=== PATIENT | female | born 1935 | race Caucasian/White ===

== ENCOUNTER 2017-06-12 14:51 | Inpatient (IN) ==
--- NOTE | 2017-06-12 15:30 | History & Physical Report ---
<Hilary Hearn - Last Filed: 06/12/17 19:10> History of Present Illness Date: 06/12/17 Chief complaint: Swing bed admission HPI: This is an 81-year-old female with history of dementia who, prior to her admission to [facility], lived alone (and her daughter checked in on her frequently throughout the day). On 05/26/17 her daughter took her into [facility] emergency room because her daughter thought that she was not acting her normal self. Head CT was performed in the ER and intraparenchymal and subdural hemorrhage were found. Due to these findings, patient was transferred to [facility]. The patient may have had a fall several days prior to her admission, but had done well since then. Patient was seen in consultation by Dr. Dyson on admission to [place]. He did not recommend surgery. He recommended observation and serial CT head scans as needed. Cardiology was consulted during her stay as well on 05/29/[address] Brenna Rangel saw patient and thought she most likely had a type 2 NSTEMI with her elevated troponin which peaked at 0.08. She had a negative bubble study by echo on 05/28/17 with an ejection fraction of 55-60%. She was placed on potassium and magnesium replacement due to low levels. He recommended outpatient Fam of Hearts monitor, but no further intervention during hospital stay other than keeping SBP <140/90. Patient is being transferred here for swing bed. Family hopes she could be transferred to the rehabilitation unit for strengthening. At this time, patient is stable and doing well. She is back to her cognitive baseline, per daughter. Daughter reports she typically does not know where she is or the date, but she recognizes family members. She is usually continent of bowel and bladder. At the end of her acute hospital stay, she was ambulating to and from the bathroom with her walker. Ideally, family wishes to get patient back home, although, they realize this might not be an option. Review of Systems All systems PM: 10-point ROS was reviewed, no additional remarkable complaints except - Constitutional Constitutional: Present: weakness - Gastrointestinal Gastrointestinal: Present: dysphagia - Musculoskeletal Musculoskeletal: Present: other (chronic right hip pain, currently not bothersome) - Neurological Neurological: Present: confusion (related to dementia), memory loss (related to dementia), weakness - Psychiatric Psychiatric: Present: other (daughter reports she does have some sundowning, but usually improves after a few days of adjusting to her new environment.) [facility] Medical History Intraparenchymal hemorrhage-right occipital, left cerebellar (06/05) Subdural hematoma-right tentorial, left posterior fossa (06/05) Acute ischemia left cerebellar hemisphere, left brachium pontis (06/05) Right common femoral vein DVT-no anticoagulation due to recent brain bleed () Right lower lobe pulmonary embolism: IVC filter placed (05/31/17) Type II NE, 2/2 demand ischemia (06/05) Dementia History of GI bleed with perforated ulcer (2014) Depression Atrial arrhythmia (not atrial fibrillation) Chronic right hip pain secondary to osteoarthritis Medical History Updates: Patient's home medications prior to [place] admission were: Donepezil 10 mg at at bedtime, sertraline 50 mg at at bedtime, amantadine 10 mg twice a day. New medications started during admission were: Clonidine 0.1 mg twice a day, amlodipine 10 mg daily, levetiracetam 5 mg twice a day, tamsulosin 0.4 mg daily, acetaminophen 500 mg every 6 hours when necessary, milk of mag when necessary, docusate 100 twice a day, and MiraLAX daily PRN. Surgical History: Cholecystectomy, appendectomy, bladder repair - Social History Smoking status: Never smoker Substance use type: does not use Alcohol intake frequency: does not drink Housing: house Household members: none Current occupational status: retired Social history: Has a dog, Tellie 3 children live close and help take care of her , passed 3 years ago [facility]gcai-hd-dlv of Dr. Berg Consultants: Neurosurgery-Dr. Dyson Cardiology-Dr. Rangel DPOA-H - Theresa Berg, daughter [phone] Medications Home Medications Medication Instructions Recorded Confirmed Type Acetaminophen [Tylenol] 325 - 650 mg PO PRN 06/12/17 06/12/17 History Donepezil HCl [Aricept] 10 mg PO HS 06/12/17 06/12/17 History Memantine HCl 10 mg PO BID 06/12/17 06/12/17 History Sertraline HCl [Zoloft] 50 mg PO HS 06/12/17 06/12/17 History Allergies Allergy/AdvReac Type Severity Reaction Status Date / Time No Known Allergies Allergy Unverified 06/12/17 15:29 Exam Vital Signs: Temperature 97.3 F 06/12/17 14:51 Pulse Rate 95 06/12/17 14:51 Respiratory Rate 16 06/12/17 14:51 Blood Pressure 108/69 06/12/17 14:51 Pulse Oximetry 94 06/12/17 14:51 Height/Weight/BMI: Height 1.68 m Weight 62.2 kg Body Mass Index 22.1 - Constitutional Present: no acute distress, well developed, thin - Routine HEENT Exam Eye: Present: EOMI ENT: Present: mucous membranes moist, oropharynx clear - Routine Neck Exam Present: supple. Absent: lymphadenopathy, thyromegaly - Routine Respiratory Exam Present: CTA bilaterally. Absent: wheezes - Routine Cardiovascular Exam Present: RRR (with frequent irregular beats), S1, S2. Absent: murmur - Routine Abdominal Exam Present: soft, normoactive bowel sounds, non distended. Absent: tenderness - Routine Extremities Exam Present: no edema, normal capillary refill - Routine Skin Exam Present: dry, warm, vitiligo (bilateral hands) - Routine Neurological Exam Present: moving all extremities, normal speech. Absent: alert (drowsy. Sleeps through part of exam.), oriented X3 (knows her family and is oriented to self, but not place or time.), pronator drift - Routine Psychiatric Exam Present: normal affect, cooperative Results - Labs Labs: 06/11/17 WBC 9.8 RBC 4.85 Hemoglobin 13.0 Hematocrit 41.0 MCV 84.5 MCH 26.8 MCHC 31.7 RDW 16.8 Platelets 434 Sodium 139 potassium 4.3 Chloride 108 Carbon dioxide 23 Anion gap 8 Glucose 96 BUN 16 Creatinine 0.9 GFR 60 Creatinine clearance 42 Calcium 8.3 As of 06/05/17 no growth on blood culture - Echocardiogram Echocardiogram: Ejection fraction 55-60%, bubble study negative - Imaging and Cardiology CT scan - head Additional comments: 06/04/17 CT head without contrast Impression: #1 interval decrease in right occipital parenchymal hemorrhage decreasing subdural hemorrhage along the tentorium and left posterior fossa #2 previously noted left cerebellar hemisphere hemorrhages less apparent on current exam with possible trace residual. #3. Hyperdensity along the anterior aspect of the right frontal lobe which may represent a small amount of extra-axial hemorrhage #4. No CT evidence of acute territorial ischemia or mass. #5. Generalized parenchymal volume loss. CT angiogram neck Additional comments: 05/26/17 Impression 1. No evidence of flow-limiting stenosis in the carotid or vertebral artery systems. Minimal sclerosis in the bilateral carotid bulbs 2. No acute abnormality in the neck CT angiogram head Additional comments: 05/26/17 Impression 1. Multifocal parenchymal hemorrhage in the right occipital lobe and layering subdural hematoma along the right tentorium. This appears similar to outside head CT from the same day. 2. No evidence of significant stenosis or aneurysm in the [place]. 3. No focal mass. No obvious CT evidence of acute territorial ischemia. CT thoracic spine Additional comments: 05/29/17 Impression 1. No acute compression fracture in the thoracic spine. Diffuse osteopenia 2. Chronic appearing for vertical height loss of T5 vertebral body with 15-20% central height loss. No discrete fracture line. 3. Degenerative changes in the thoracic spine. No retropulsed bony fragments. No bony spinal canal or foraminal stenosis. 4. Bilateral pleural effusions, left greater than right. Interlobular septal thickening in the lungs with scattered groundglass opacities could be due to pulmonary edema. 5. Cholelithiasis. 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 CT cervical spine Additional comments: 05/29/17 Impression 1. No acute fracture in the cervical spine 2. Mild anterolisthesis of C4 over C5 is likely degenerative, stable since prior CT dated 05/26/17. 3. Interstitial thickening and bilateral pleural effusions and included lung bases. This can be seen with pulmonary edema. MRI - head Additional comments: Acute pH involving right occipital lobe, punctate foci of acute ischemia involving the left cerebellar hemisphere and the left brachium pontis. Minimal SDH overlying right occipital lobe and right cerebellum tentorium. EEG Additional comments: No seizure activity Venous US Additional comments: 05/31/17 Impression 1. Small focus of nonobstructing thrombus at the junction of the right [place] and right saphenous veins. Remaining right lower extremity venous system is patent. 2. No evidence of DVT in the left lower extremity. Dobbhoff placement Additional comments: Chest x-ray performed 05/29/17 for Dobbhoff placement. Impression 1. Dobbhoff tube extending below the diaphragm. On the exit of the abdomen it is in the fourth portion of the duodenum. 2. Cardiomegaly. Pulmonary vascular congestion. 3. Increasing bibasilar airspace opacities could be due to atelectasis. Multilobar infection can have similar appearance. 4. Bilateral small pleural effusions, increased from prior. limited abdominal sono-FAST scan Additional comments: 05/26/17 Findings: No free fluid is identified in the right upper quadrant, left upper quadrant, or suprapubic region. There is no significant pericardial effusion. Sliding pleura sign is seen, bilaterally. Negative FAST scan Assessment and Plan (1) Dementia Current visit: Yes Status: Acute (2) Subdural hematoma Current visit: Yes Status: Acute (3) Intraparenchymal hemorrhage of brain Current visit: Yes Status: Acute Assessment and Plan: Assessment Intraparenchymal hemorrhage-right occipital, left cerebellar (06/05) Subdural hematoma-right tentorial, left posterior fossa (06/05) Acute ischemia left cerebellar hemisphere, left brachium pontis (06/05) Right common femoral vein DVT-no anticoagulation due to recent brain bleed () Right lower lobe pulmonary embolism: IVC filter placed (05/31/17) Type II NE, 2/2 demand ischemia (06/05) Dementia History of GI bleed with perforated ulcer (2014) Depression Atrial arrhythmia (not atrial fibrillation) Chronic right hip pain secondary to osteoarthritis Plan Admission to swing bed at [facility] - hospitalist service to follow , (Dr. Holly Mitchell, attending) for increasing strength and functional abilities, and medication administration. Consult PT/OT for strengthening and improving functional abilities. IRU screen ordered, as family would like for patient to transfer to IRU if possible. Consult speech therapy for dysphagia/diet recommendations. Daughter reports patient has not been eating much the last day or 2. Will also encourage Mighty Shakes. Continue amlodipine and clonidine for blood pressure control. Goal is to keep systolic blood pressure less than 140. Fam of hearts monitor recommended as outpatient per cardiology if family wishes. (Per Dr. Brenna Rangel). Recommend potassium> 4 and magnesium > 2. Follow-up with outpatient neurologist in 3-4 weeks. Continue Keppra until then. Monitor for mood disturbances/suicidal ideation while taking Keppra. Daughter would like to defer scheduling this until discharge because based on where she is discharged, will determine which neurologist she sees. No driving, swimming or bathing alone for 6 months. Follow-up with neurosurgery (Dr. Dyson) in 6-[address] head. Schedule with Dr. Wilde, interventional radiology, in 6 months to remove IVC filter. SCDs for DVT prophylaxis. Anticoagulation contraindicated at this point given the recent brain bleed. Continue memantine and donepezil for dementia. Continue sertraline for depression. Continue tamsulosin for urinary retention. Patient and family request DO NOT RESUSCITATE status. Care to return to [facility], at [facility] on dismissal. DVT Prophylaxis: SCD's Resuscitation Status: Do Not Resuscitate Hospital Course Summary Disclaimer: The visit summary below is not to be considered part of the above Progress Note. Hospital Course: Assessment Intraparenchymal hemorrhage-right occipital, left cerebellar (06/05) Subdural hematoma-right tentorial, left posterior fossa (06/05) Acute ischemia left cerebellar hemisphere, left brachium pontis (06/05) Right common femoral vein DVT-no anticoagulation due to recent brain bleed () Right lower lobe pulmonary embolism: IVC filter placed (05/31/17) Type II NE, 2/2 demand ischemia (06/05) Dementia History of GI bleed with perforated ulcer (2014) Depression Atrial arrhythmia (not atrial fibrillation) Chronic right hip pain secondary to osteoarthritis 06/12/17 hospital admission for swing bed Admission to swing bed at [facility] - hospitalist service to follow , (Dr. Holly Mitchell, attending) for increasing strength and functional abilities, and medication administration. Consult PT/OT for strengthening and improving functional abilities. IRU screen ordered, as family would like for patient to transfer to IRU if possible. Consult speech therapy for dysphagia/diet recommendations. Daughter reports patient has not been eating much the last day or 2. Will also encourage Mighty Shakes. Continue amlodipine and clonidine for blood pressure control. Goal is to keep systolic blood pressure less than 140. Fam of Impraise monitor recommended as outpatient per cardiology if family wishes. (Per Dr. Brenna Rangel). Recommend potassium> 4 and magnesium > 2. Follow-up with outpatient neurologist in 3-4 weeks. Continue Keppra until then. Monitor for mood disturbances/suicidal ideation while taking Keppra. Daughter would like to defer scheduling this until discharge because based on where she is discharged, will determine which neurologist she sees. No driving, swimming or bathing alone for 6 months. Follow-up with neurosurgery (Dr. Dyson) in 6-[address] head. Schedule with Dr. Wilde, interventional radiology, in 6 months to remove IVC filter. SCDs for DVT prophylaxis. Anticoagulation contraindicated at this point given the recent brain bleed. Continue memantine and donepezil for dementia. Continue sertraline for depression. Continue tamsulosin for urinary retention. Patient and family request DO NOT RESUSCITATE status. Care to return to [facility], at [facility] on dismissal. <Holly Mitchell - Last Filed: 06/12/17 21:13> History of Present Illness Date: 06/12/17 [facility] Patient Stated Medical History Cerebrovascular Accident Yes Dementia Yes Transient Ischemic Attacks ( Yes TIA) Dental Problems Yes: dentures, partial Dysphagia Yes Cardiac Arrhythmia Yes Pulmonary Embolism Yes Gastrointestinal Bleeding Yes: "about a year ago" Hx Incontinence Yes Osteoarthritis Yes Shingles Yes Depression Yes Post Menopausal Yes Exam Vital Signs: Temperature 97.3 F 06/12/17 14:51 Pulse Rate 95 06/12/17 14:51 Respiratory Rate 16 06/12/17 14:51 Blood Pressure 108/69 06/12/17 14:51 Pulse Oximetry 94 06/12/17 14:51 Height/Weight/BMI: Height 1.68 m Weight 62.2 kg Body Mass Index 22.1 Assessment and Plan (1) Dementia Current visit: Yes Status: Acute (2) Subdural hematoma Current visit: Yes Status: Acute (3) Intraparenchymal hemorrhage of brain Current visit: Yes Status: Acute Assessment and Plan: 06/12/2017-I reviewed this chart, the patient history, and the [employer]ST[employer]'s/PA's documented findings as above. We discussed and formulated the assessment and plan as above with the additions below.-Dr. Mitchell I did receive a call this morning prior to transfer from [facility] for Dr. Rae, neuro-product manufacturing professional. The patient had been at [facility] for the past 17 days after having multiple intraparenchymal hemorrhages, subdural hemorrhage, and an acute ischemic left cerebral infarct thought to be secondary to trauma from a fall. She was in intensive care for approximately 10 days. Blood pressure was controlled. She did develop a right lower extremity DVT and PE. An IVC filter was placed and she was not anticoagulated because of recent intraparenchymal bleeds and subdural hematoma. The patient was initially requiring oxygen but now is on room air. She had been on the medical floor for the past 1 week. Blood pressures had been well controlled and no when necessary meds were needed. She had no neurologic deficits by the time of discharge and dementia appeared to be at baseline. She was started on Keppra for seizure prophylaxis but has not had seizures this hospital course. It was recommended that her IVC filter be removed in 6 months. It was also recommended that she have a [employer] monitor as an outpatient. The patient was seen this afternoon accompanied by her son Brandon. The patient states she feels fine and she has no complaints. She denies any pain. She denies shortness of breath. She states she's been eating and drinking well. She' s had no difficulties with constipation or difficulties with urination. She states she would like to walk more. On exam she is alert and in no acute distress. She is somewhat forgetful and tells me that her son is her "brother". HEENT reveals sclerae to be anicteric, pupils are equal round and reactive, oropharynx is moist. Neck is supple. Chest is clear to auscultation. Cardiac vascular reveals a regular rate and rhythm. Abdomen is soft and nontender. Extremity's are free of edema. Cranial nerves II through XII are grossly intact. Motor strength is equal in upper and lower extremities. Impression and plan Agree with detailed care plan dictated above. We'll continue PT and OT in swing bed status. We'll check labs tomorrow. We'll place an SCD on the left leg only, not the right leg with history of DVT. Hospital Course Summary Disclaimer: The visit summary below is not to be considered part of the above Progress Note.
[2017-06-12] MEDS ORDERED: POLYETHYL GLYCOL 3350 17gm PACKET PO PRN (18:14)
[2017-06-12] MEDS: MEMANTINE 10 MG TABLET PO SCH (21:01)
[2017-06-12] MEDS: SERTRALINE 50 MG TABLET PO SCH (21:02)
[2017-06-12] MEDS: TAMSULOSIN 0.4 MG CAPSULE PO SCH (21:02)
[2017-06-12] MEDS: LEVETIRACETAM 500 MG TABLET PO SCH (21:02)
[2017-06-12] MEDS: DONEPEZIL 10 MG TABLET PO SCH (21:02)
[2017-06-13] MEDS: AMLODIPINE 10 MG TABLET PO SCH (09:05)
[2017-06-13] MEDS: MEMANTINE 10 MG TABLET PO SCH ×2 (09:06→20:57)
[2017-06-13] MEDS: LEVETIRACETAM 500 MG TABLET PO SCH ×2 (09:06→20:57)
[2017-06-13] MEDS ORDERED: NS 1,000 ML IV SCH ×2 (12:00→19:10)
[2017-06-13 13:06] VITALS: BMI 21.9
[2017-06-13] MEDS ORDERED: CephALEXin 250 MG/5 ML ORAL LIQUID PO SCH (15:00)
--- NOTE | 2017-06-13 17:13 | Progress Note ---
- Date 06/13/17 Subjective: The patient is seen in her room this afternoon accompanied by her granddaughter. She states she is feeling well. She had an elevated white count today and signs of dehydration. She has had decreased urination and urine sample was taken which looked thickened cloudy per her nurse. Post void bladder scan did not show significant urinary retention. The patient denies any dysuria but states she doesn't like to drink too much water because she doesn't want to have to go to the bathroom frequently. She is willing to drink more water if needed. She denies any pain. She denies any shortness of breath. She states she is eating well. She was up walking in the halls earlier today with physical therapy. Objective Vital signs: Temperature 96.9 F 06/13/17 14:11 Pulse Rate 104 H 06/13/17 14:11 Respiratory Rate 18 06/13/17 14:11 Blood Pressure 118/55 06/13/17 14:11 Pulse Oximetry 94 06/13/17 14:11 Height/Weight/BMI: Height 1.68 m Weight 61.689 kg Body Mass Index 21.9 Comments: GEN-alert, mild confusion appears at baseline with her dementia HEENT-sclera anicteric, oropharynx is moist NECK-supple CV-irregularly irregular, borderline tachycardic CHEST-clear to auscultation bilaterally ABD-soft, nontender, nondistended with positive bowel sounds. No suprapubic tenderness -no Joaquin EXT-no edema NEURO-mild memory decline, no focal deficits SKIN-warm and dry and without rashes Results - Labs CBC & Chem 7: 06/13/17 04:20 06/13/17 04:20 Labs: White count was 14.6 today up from 9.8 when last checked at [place]. Neutrophils are 88% Hemoglobin is essentially stable at 12.6 and was 13 when last checked at [place] BUN and creatinine today were 32 and 1.4 respectively. When last checked at [place] were 16 and 0.9 respectively. Potassium today is 5.3 but the specimen was hemolyzed. Urinalysis today shows specific gravity greater than 1.030, protein +1, trace ketones, 2+ blood, +1 bilirubin, 3+ leukocyte esterase, 5-10 red blood cells, too numerous to count white blood cells, many clumps, 10-20 epithelial cells, 3 + bacteria Microbiology Results: Microbiology 06/13/17 12:06 Urine, Voided (Cc/notcc) Urine Culture - Preliminary Culture Initiated - Results Pending Assessment and Plan (1) Dementia Current visit: Yes Status: Acute (2) Subdural hematoma Current visit: Yes Status: Acute (3) Intraparenchymal hemorrhage of brain Current visit: Yes Status: Acute Assessment and Plan: Impression Intraparenchymal hemorrhage-right occipital, left cerebellar (06/05) Subdural hematoma-right tentorial, left posterior fossa (06/05) Acute ischemia left cerebellar hemisphere, left brachium pontis (06/05) Right common femoral vein DVT-no anticoagulation due to recent brain bleed () Right lower lobe pulmonary embolism: IVC filter placed (05/31/17) Type II [place], 2/2 demand ischemia (06/05) Dementia History of GI bleed with perforated ulcer (2014) Depression Atrial arrhythmia (not atrial fibrillation) Chronic right hip pain secondary to osteoarthritis Acute kidney injury, likely secondary to dehydration Leukocytosis- likely secondary to UTI-patient does not appear septic UTI-culture is pending Irregular heart rhythm on exam-EKG shows sinus rhythm Plan Start Keflex 500 mg by mouth 3 times a day on 06/13/2017 for [id number] on culture to see if antibiotics need to be adjusted. Regarding acute kidney injury, will give IV fluids 2 L for elevated BUN/ creatinine. Encourage by mouth fluids. Medications reviewed and the patient is not on any nephrotoxins. Blood pressure has been normal. Recheck basic metabolic profile and CBC tomorrow. Hospital Course Summary Disclaimer: The visit summary below is not to be considered part of the above Progress Note. Hospital Course: Assessment Intraparenchymal hemorrhage-right occipital, left cerebellar (06/05) Subdural hematoma-right tentorial, left posterior fossa (06/05) Acute ischemia left cerebellar hemisphere, left brachium pontis (06/05) Right common femoral vein DVT-no anticoagulation due to recent brain bleed () Right lower lobe pulmonary embolism: IVC filter placed (05/31/17) Type II [place], 2/2 demand ischemia (06/05) Dementia History of GI bleed with perforated ulcer (2014) Depression Atrial arrhythmia (not atrial fibrillation) Chronic right hip pain secondary to osteoarthritis 06/12/17 hospital admission for swing bed Admission to swing bed at [facility] - hospitalist service to follow , (Dr. Holly Mitchell, attending) for increasing strength and functional abilities, and medication administration. Consult PT/OT for strengthening and improving functional abilities. IRU screen ordered, as family would like for patient to transfer to IRU if possible. Consult speech therapy for dysphagia/diet recommendations. Daughter reports patient has not been eating much the last day or 2. Will also encourage Mighty Shakes. Continue amlodipine and clonidine for blood pressure control. Goal is to keep systolic blood pressure less than 140. [facility] monitor recommended as outpatient per cardiology if family wishes. (Per Dr. Brenna Rangel). Recommend potassium> 4 and magnesium > 2. Follow-up with outpatient neurologist in 3-4 weeks. Continue Keppra until then. Monitor for mood disturbances/suicidal ideation while taking Keppra. Daughter would like to defer scheduling this until discharge because based on where she is discharged, will determine which neurologist she sees. No driving, swimming or bathing alone for 6 months. Follow-up with neurosurgery (Dr. Dyson) in 6-[address] head. Schedule with Dr. Wilde, interventional radiology, in 6 months to remove IVC filter. SCDs for DVT prophylaxis. Anticoagulation contraindicated at this point given the recent brain bleed. Continue memantine and donepezil for dementia. Continue sertraline for depression. Continue tamsulosin for urinary retention. Patient and family request DO NOT RESUSCITATE status. Care to return to ARASELI Stanford, at [facility] on dismissal.
[2017-06-13] MEDS: SERTRALINE 50 MG TABLET PO SCH (20:57)
[2017-06-13] MEDS: TAMSULOSIN 0.4 MG CAPSULE PO SCH (20:57)
[2017-06-13] MEDS: DONEPEZIL 10 MG TABLET PO SCH (20:57)
[2017-06-14] MEDS: MEMANTINE 10 MG TABLET PO SCH ×2 (09:18→21:30)
[2017-06-14] MEDS: LEVETIRACETAM 500 MG TABLET PO SCH ×2 (09:18→21:31)
[2017-06-14] MEDS: AMLODIPINE 10 MG TABLET PO SCH (09:18)
[2017-06-14] MEDS: SALINE FLUSH 10ml SYRINGE IV PRN ×3 (09:53→21:59)
--- NOTE | 2017-06-14 09:57 | Progress Note ---
<Hilary Hearn - Last Filed: 06/14/17 11:30> - Date 06/14/17 Subjective: Patient is seen sitting up in her chair for breakfast. She is dozing and struggles to stay awake to answer my questions. Complains of being fatigued. Nurses report she has been quite sleepy all morning. Patient was started on Keflex yesterday for UTI. Culture is pending. She had a temp of 99 this am. Nurses report she doesn't urinate frequently, but bladder scans have been ok. She was given 1 L IV fluids yesterday due to elevation in her BUN/creatinine. Objective Vital signs: Temperature 99 F 06/14/17 07:40 Pulse Rate 89 06/14/17 07:40 Respiratory Rate 18 06/14/17 07:40 Blood Pressure 122/64 06/14/17 07:40 Pulse Oximetry 93 06/14/17 07:40 Height/Weight/BMI: Height 1.68 m Weight 65.2 kg Body Mass Index 21.9 - Constitutional Present: no acute distress, well developed, thin - Routine Respiratory Exam Present: CTA bilaterally. Absent: wheezes - Routine Cardiovascular Exam Present: RRR, S1, S2. Absent: murmur - Routine Abdominal Exam Present: soft, normoactive bowel sounds, non distended. Absent: tenderness - Routine Extremities Exam Present: edema (RLL with mild swelling and tenderness to R calf (DVT in this extremity)), no edema (LLE), normal capillary refill - Routine Skin Exam Present: dry, warm - Routine Neurological Exam Absent: alert (drowsy), oriented X3 (oriented to self only - normal for this patient) - Routine Lymphatic Exam Lymphatic: Absent: adenopathy - Routine Psychiatric Exam Present: cooperative. Absent: normal affect (drowsy) Results - Labs CBC & Chem 7: 06/14/17 04:38 06/14/17 04:38 Microbiology Results: Microbiology 06/13/17 12:06 Urine, Voided (Cc/notcc) Urine Culture - Preliminary Culture Initiated - Results Pending Assessment and Plan (1) Dementia Current visit: Yes Status: Acute (2) Subdural hematoma Current visit: Yes Status: Acute (3) Intraparenchymal hemorrhage of brain Current visit: Yes Status: Acute Assessment and Plan: Impression Intraparenchymal hemorrhage-right occipital, left cerebellar (06/05) Subdural hematoma-right tentorial, left posterior fossa (06/05) Acute ischemia left cerebellar hemisphere, left brachium pontis (06/05) Right common femoral vein DVT-no anticoagulation due to recent brain bleed () Right lower lobe pulmonary embolism: IVC filter placed (05/31/17) Type II [place], 2/2 demand ischemia (06/05) Dementia History of GI bleed with perforated ulcer (2014) Depression Atrial arrhythmia (not atrial fibrillation) Chronic right hip pain secondary to osteoarthritis Acute kidney injury, likely secondary to dehydration Leukocytosis- likely secondary to UTI-patient does not appear septic UTI-culture is pending Plan Will start Rocephin [address] of Keflex until culture is resulted given her temp elevation and elevated WBC. Recheck basic metabolic profile and CBC tomorrow. Continue PT/OT for continued strengthening. Family would like for her to be in IRU if there is availability. IRU systems project manager reported back that pt doesn't qualify at this point as she is not able tolerate 3 hrs of therapy at this point. Give another liter of NS at 100cc/hr given her continued elevation in Cr/BUN. Hospital Course Summary Disclaimer: The visit summary below is not to be considered part of the above Progress Note. Hospital Course: Assessment Intraparenchymal hemorrhage-right occipital, left cerebellar (06/05) Subdural hematoma-right tentorial, left posterior fossa (06/05) Acute ischemia left cerebellar hemisphere, left brachium pontis (06/05) Right common femoral vein DVT-no anticoagulation due to recent brain bleed () Right lower lobe pulmonary embolism: IVC filter placed (05/31/17) Type II [place], 2/2 demand ischemia (06/05) Dementia History of GI bleed with perforated ulcer (2014) Depression Atrial arrhythmia (not atrial fibrillation) Chronic right hip pain secondary to osteoarthritis 06/12/17 hospital admission for swing bed Admission to swing bed at [facility] - hospitalist service to follow , (Dr. Holly Mitchell, attending) for increasing strength and functional abilities, and medication administration. Consult PT/OT for strengthening and improving functional abilities. IRU screen ordered, as family would like for patient to transfer to IRU if possible. Consult speech therapy for dysphagia/diet recommendations. Daughter reports patient has not been eating much the last day or 2. Will also encourage Yuridia Jacobokes. Continue amlodipine and clonidine for blood pressure control. Goal is to keep systolic blood pressure less than 140. [facility] monitor recommended as outpatient per cardiology if family wishes. (Per Dr. Brenna Rangel). Recommend potassium> 4 and magnesium > 2. Follow-up with outpatient neurologist in 3-4 weeks. Continue Keppra until then. Monitor for mood disturbances/suicidal ideation while taking Keppra. Daughter would like to defer scheduling this until discharge because based on where she is discharged, will determine which neurologist she sees. No driving, swimming or bathing alone for 6 months. Follow-up with neurosurgery (Dr. Dyson) in 6-[address] head. Schedule with Dr. Wilde, interventional radiology, in 6 months to remove IVC filter. SCDs for DVT prophylaxis. Anticoagulation contraindicated at this point given the recent brain bleed. Continue memantine and donepezil for dementia. Continue sertraline for depression. Continue tamsulosin for urinary retention. Patient and family request DO NOT RESUSCITATE status. Care to return to ARASELI Stanford, at [facility] on dismissal. 06/13/17 Start Keflex 500 mg by mouth 3 times a day on 06/13/2017 for [id number] on culture to see if antibiotics need to be adjusted. Regarding acute kidney injury, will give IV fluids 2 L for elevated BUN/ creatinine. Encourage by mouth fluids. Medications reviewed and the patient is not on any nephrotoxins. Blood pressure has been normal. Recheck basic metabolic profile and CBC tomorrow. 06/14/17 Will start Rocephin [address] of Keflex until culture is resulted given her temp elevation and elevated WBC. Recheck basic metabolic profile and CBC tomorrow. Continue PT/OT for continued strengthening. IRU screen is pending. Family would like for her to be in IRU if there is availability. Give another liter of NS at 100cc/hr given her continued elevation in Cr/BU 06/14/17 10:26 <Ganga Roberts - Last Filed: 06/18/17 19:05> - Date 06/18/17 Subjective: Seen and examined patient on same day as the above note. Agree with history, physical, assessment and plan. Comprehensive physical findings correlate to the above note. Noted somnolent and most likely secondary to UTI, recent brain injury as well as the anti-convulsive Keppra. Documented on Dragon speech to text. Efforts to crack speech recognition errors performed, but variation may exist Objective Vital signs: Temperature 97.9 F 06/18/17 15:17 Pulse Rate 88 06/18/17 15:17 Respiratory Rate 18 06/18/17 15:17 Blood Pressure 133/64 06/18/17 15:17 Pulse Oximetry 94 06/18/17 15:17 Height/Weight/BMI: Height 5 ft 6 in Weight 64.4 kg Body Mass Index 21.9 Results - Labs CBC & Chem 7: 06/16/17 04:10 06/16/17 04:10 Microbiology Results: Microbiology 06/13/17 12:06 Urine, Voided (Cc/notcc) Urine Culture - Final Escherichia coli Assessment and Plan (1) Dementia Current visit: Yes Status: Acute (2) Subdural hematoma Current visit: Yes Status: Acute (3) Intraparenchymal hemorrhage of brain Current visit: Yes Status: Acute Hospital Course Summary Disclaimer: The visit summary below is not to be considered part of the above Progress Note.
[2017-06-14] MEDS: CEFTRIAXONE 1 G in NS 100 ML IV SCH (10:19)
[2017-06-14] MEDS ORDERED: NS 1,000 ML IV SCH (10:30)
[2017-06-14] MEDS: SERTRALINE 50 MG TABLET PO SCH (21:30)
[2017-06-14] MEDS: DONEPEZIL 10 MG TABLET PO SCH (21:30)
[2017-06-14] MEDS: TAMSULOSIN 0.4 MG CAPSULE PO SCH (21:31)
[2017-06-15] MEDS: AMLODIPINE 10 MG TABLET PO SCH (09:44)
[2017-06-15] MEDS: MEMANTINE 10 MG TABLET PO SCH ×2 (09:45→21:32)
[2017-06-15] MEDS: LEVETIRACETAM 500 MG TABLET PO SCH ×2 (09:45→21:31)
[2017-06-15] MEDS: CEFTRIAXONE 1 G in NS 100 ML IV SCH (09:46)
[2017-06-15] MEDS: POLYETHYL. GLYCOL 3350 BOTTLE 238 GM PO SCH (09:47)
--- NOTE | 2017-06-15 15:03 | Progress Note ---
<Hilary Hearn - Last Filed: 06/15/17 15:00> - Date 06/15/17 Subjective: Patient is seen today while dozing in her chair. She reports she is very tired. She has just eaten breakfast and wants to go back to bed. She does not complain of headache. She is not having any chest pain or shortness of breath. When asked if her bowels are moving she states "I don't know." Her nurse has relayed to me that the family is concerned about how drowsy she is and they wonder if she is depressed or if it is a side effect to the Keppra. Objective Vital signs: Temperature 98.5 F 06/15/17 08:00 Pulse Rate 88 06/15/17 08:00 Respiratory Rate 16 06/15/17 08:00 Blood Pressure 124/63 06/15/17 08:00 Pulse Oximetry 94 06/15/17 08:00 Height/Weight/BMI: Height 1.68 m Weight 66.5 kg Body Mass Index 21.9 - Constitutional Present: no acute distress, well developed, thin - Routine HEENT Exam Head: Present: normocephalic - Routine Respiratory Exam Present: CTA bilaterally. Absent: respiratory distress, wheezes - Routine Cardiovascular Exam Present: RRR. Absent: murmur - Routine Abdominal Exam Present: soft, normoactive bowel sounds, non distended. Absent: tenderness - Routine Extremities Exam Present: edema (1+ right lower extremity (this is the leg with the DVT)), no edema (left lower extremity), normal capillary refill - Routine Skin Exam Present: dry, warm - Routine Neurological Exam Absent: alert (sleep center most of exam), oriented X3 - Routine Lymphatic Exam Lymphatic: Absent: adenopathy - Routine Psychiatric Exam Present: normal affect, cooperative Results - Labs CBC & Chem 7: 06/15/17 05:31 06/15/17 05:31 Microbiology Results: Microbiology 06/13/17 12:06 Urine, Voided (Cc/notcc) Urine Culture - Preliminary Escherichia coli Escherichia coli#2 Assessment and Plan (1) Dementia Current visit: Yes Status: Acute (2) Subdural hematoma Current visit: Yes Status: Acute (3) Intraparenchymal hemorrhage of brain Current visit: Yes Status: Acute Assessment and Plan: Impression Intraparenchymal hemorrhage-right occipital, left cerebellar (06/05) Subdural hematoma-right tentorial, left posterior fossa (06/05) Acute ischemia left cerebellar hemisphere, left brachium pontis (06/05) Right common femoral vein DVT-no anticoagulation due to recent brain bleed () Right lower lobe pulmonary embolism: IVC filter placed (05/31/17) Type II [place], 2/2 demand ischemia (06/05) Dementia History of GI bleed with perforated ulcer (2014) Depression Atrial arrhythmia (not atrial fibrillation) Chronic right hip pain secondary to osteoarthritis Acute kidney injury, likely secondary to dehydration Leukocytosis- likely secondary to UTI-patient does not appear septic UTI-culture is pending Plan Continue Rocephin for UTI. Preliminary report showing growth of Escherichia coli. Sensitivity is not resulted yet. WBC is improved today. Her creatinine and BUN improved with IV fluids, however, her weight is up 5 kg since admission. Her O2 sats remain stable at 94. She's not short of breath. Will continue to monitor. Repeat BMP in a.m. Decrease Keppra dosing down to once daily to see if this helps with her drowsiness. Her hemoglobin is down over a point since admission, but this is likely dilutional. Will check CBC in the a.m. Hospital Course Summary Disclaimer: The visit summary below is not to be considered part of the above Progress Note. Hospital Course: Assessment Intraparenchymal hemorrhage-right occipital, left cerebellar (06/05) Subdural hematoma-right tentorial, left posterior fossa (06/05) Acute ischemia left cerebellar hemisphere, left brachium pontis (06/05) Right common femoral vein DVT-no anticoagulation due to recent brain bleed () Right lower lobe pulmonary embolism: IVC filter placed (05/31/17) Type II [place], 2/2 demand ischemia (06/05) Dementia History of GI bleed with perforated ulcer (2014) Depression Atrial arrhythmia (not atrial fibrillation) Chronic right hip pain secondary to osteoarthritis 06/12/17 hospital admission for swing bed Admission to swing bed at [facility] - hospitalist service to follow , (Dr. Holly Mitchell, attending) for increasing strength and functional abilities, and medication administration. Consult PT/OT for strengthening and improving functional abilities. IRU screen ordered, as family would like for patient to transfer to IRU if possible. Consult speech therapy for dysphagia/diet recommendations. Daughter reports patient has not been eating much the last day or 2. Will also encourage Mighty Shakes. Continue amlodipine and clonidine for blood pressure control. Goal is to keep systolic blood pressure less than 140. [facility] monitor recommended as outpatient per cardiology if family wishes. (Per Dr. Brenna Rangel). Recommend potassium> 4 and magnesium > 2. Follow-up with outpatient neurologist in 3-4 weeks. Continue Keppra until then. Monitor for mood disturbances/suicidal ideation while taking Keppra. Daughter would like to defer scheduling this until discharge because based on where she is discharged, will determine which neurologist she sees. No driving, swimming or bathing alone for 6 months. Follow-up with neurosurgery (Dr. Dyson) in 6-[address] head. Schedule with Dr. Wilde, interventional radiology, in 6 months to remove IVC filter. SCDs for DVT prophylaxis. Anticoagulation contraindicated at this point given the recent brain bleed. Continue memantine and donepezil for dementia. Continue sertraline for depression. Continue tamsulosin for urinary retention. Patient and family request DO NOT RESUSCITATE status. Care to return to ARASELI Stanford, at [facility] on dismissal. 06/13/17 Start Keflex 500 mg by mouth 3 times a day on 06/13/2017 for [id number] on culture to see if antibiotics need to be adjusted. Regarding acute kidney injury, will give IV fluids 2 L for elevated BUN/ creatinine. Encourage by mouth fluids. Medications reviewed and the patient is not on any nephrotoxins. Blood pressure has been normal. Recheck basic metabolic profile and CBC tomorrow. 06/14/17 Will start Rocephin [address] of Keflex until culture is resulted given her temp elevation and elevated WBC. Recheck basic metabolic profile and CBC tomorrow. Continue PT/OT for continued strengthening. IRU screen is pending. Family would like for her to be in IRU if there is availability. Give another liter of NS at 100cc/hr given her continued elevation in Cr/BU 06/14/17 10:26 06/15/17 Continue Rocephin for UTI. Preliminary report showing growth of Escherichia coli. Sensitivity is not resulted yet. WBC is improved today. Her creatinine and BUN improved with IV fluids, however, her weight is up 5 kg since admission. Her O2 sats remain stable at 94. She's not short of breath. Will continue to monitor. Repeat BMP in a.m. Decrease Keppra dosing down to once daily to see if this helps with her drowsiness. Her hemoglobin is down over a point since admission, but this is likely dilutional. Will check CBC in the a.m. <AlejandraHemalathaGanga P - Last Filed: 06/18/17 19:23> - Date 06/18/17 Objective Vital signs: Temperature 97.9 F 06/18/17 15:17 Pulse Rate 88 06/18/17 15:17 Respiratory Rate 18 06/18/17 15:17 Blood Pressure 133/64 06/18/17 15:17 Pulse Oximetry 94 06/18/17 15:17 Height/Weight/BMI: Height 5 ft 6 in Weight 64.4 kg Body Mass Index 21.9 Results - Labs CBC & Chem 7: 06/16/17 04:10 06/16/17 04:10 Microbiology Results: Microbiology 06/13/17 12:06 Urine, Voided (Cc/notcc) Urine Culture - Final Escherichia coli Assessment and Plan (1) Dementia Current visit: Yes Status: Acute (2) Subdural hematoma Current visit: Yes Status: Acute (3) Intraparenchymal hemorrhage of brain Current visit: Yes Status: Acute Assessment and Plan: Seen and examined patient on same day as the above note. Agree with history, physical, assessment and plan. Comprehensive physical findings correlate to the above note. Patient is still somnolent. Continue with Rocephin, decreased dose of Keppra. Discussed with family on hand. Documented on Dragon speech to text. Efforts to correct speech recognition errors performed, but variation may exist Hospital Course Summary Disclaimer: The visit summary below is not to be considered part of the above Progress Note.
[2017-06-15] MEDS: DONEPEZIL 10 MG TABLET PO SCH (21:31)
[2017-06-15] MEDS: SERTRALINE 50 MG TABLET PO SCH (21:32)
[2017-06-15] MEDS: TAMSULOSIN 0.4 MG CAPSULE PO SCH (21:32)
[2017-06-15] MEDS: SALINE FLUSH 10ml SYRINGE IV PRN (21:34)
[2017-06-16] MEDS: MEMANTINE 10 MG TABLET PO SCH ×2 (09:52→21:48)
[2017-06-16] MEDS: AMLODIPINE 10 MG TABLET PO SCH (09:52)
[2017-06-16] MEDS: ACETAMINOPHEN 500 MG TABLET PO PRN (09:52)
[2017-06-16] MEDS: POLYETHYL. GLYCOL 3350 BOTTLE 238 GM PO SCH (09:53)
[2017-06-16] MEDS: CEFTRIAXONE 1 G in NS 100 ML IV SCH (09:54)
[2017-06-16] MEDS ORDERED: FALL RISK - PHARMACY CONSULT XX ONE (16:33)
--- NOTE | 2017-06-16 21:15 | Progress Note ---
- Date 06/16/17 Subjective: Patient is rather somnolent. She states feeling unwell but does not have any particular point of contention. Simply weak and very "off". Denies any urinary tract symptoms when asked about dysuria abdominal pain or frequency Objective Vital signs: Temperature 97.5 F 06/16/17 15:50 Pulse Rate 85 06/16/17 17:22 Respiratory Rate 16 06/16/17 17:22 Blood Pressure 121/64 06/16/17 17:22 Pulse Oximetry 94 06/16/17 17:22 Height/Weight/BMI: Height 5 ft 6 in Weight 66.2 kg Body Mass Index 21.9 - Constitutional Present: well nourished, well developed, cooperative, somnolent - Routine HEENT Exam Head: Present: normocephalic, atraumatic Eye: Present: EOMI, PERRL ENT: Present: mucous membranes moist, dentition normal - Routine Respiratory Exam Present: CTA bilaterally. Absent: wheezes - Routine Cardiovascular Exam Present: RRR. Absent: murmur - Routine Abdominal Exam Present: soft, normoactive bowel sounds, non distended. Absent: tenderness - Routine Extremities Exam Present: normal capillary refill - Routine Skin Exam Present: dry, warm - Routine Neurological Exam Present: alert, oriented X3, CN II-XII intact - Routine Lymphatic Exam Lymphatic: Absent: adenopathy - Routine Psychiatric Exam Present: normal affect, depressed Results - Labs CBC & Chem 7: 06/16/17 04:10 06/16/17 04:10 Microbiology Results: Microbiology 06/13/17 12:06 Urine, Voided (Cc/notcc) Urine Culture - Final Escherichia coli Assessment and Plan (1) Dementia Current visit: Yes Status: Acute (2) Subdural hematoma Current visit: Yes Status: Acute (3) Intraparenchymal hemorrhage of brain Current visit: Yes Status: Acute Assessment and Plan: Impression Intraparenchymal hemorrhage-right occipital, left cerebellar (06/05) Subdural hematoma-right tentorial, left posterior fossa (06/05) Acute ischemia left cerebellar hemisphere, left brachium pontis (06/05) Right common femoral vein DVT-no anticoagulation due to recent brain bleed () Right lower lobe pulmonary embolism: IVC filter placed (05/31/17) Type II [place], 2/2 demand ischemia (06/05) Dementia History of GI bleed with perforated ulcer (2014) Depression Atrial arrhythmia (not atrial fibrillation) Chronic right hip pain secondary to osteoarthritis Acute kidney injury, likely secondary to dehydration Leukocytosis- likely secondary to UTI-patient does not appear septic UTI-culture is pending Plan Continue Rocephin for UTI. Preliminary report showing growth of Escherichia coli. Sensitivity is not resulted yet. WBC is improved today. Her creatinine and BUN improved with IV fluids, however, her weight is up 5 kg since admission. Her O2 sats remain stable at 94. She's not short of breath. Will continue to monitor. Repeat BMP in a.m. Decrease Keppra dosing down to once daily to see if this helps with her drowsiness. Her hemoglobin is down over a point since admission, but this is likely dilutional. Will check CBC in the a.m. Hospital Course Summary Disclaimer: The visit summary below is not to be considered part of the above Progress Note. Hospital Course: Assessment Intraparenchymal hemorrhage-right occipital, left cerebellar (06/05) Subdural hematoma-right tentorial, left posterior fossa (06/05) Acute ischemia left cerebellar hemisphere, left brachium pontis (06/05) Right common femoral vein DVT-no anticoagulation due to recent brain bleed () Right lower lobe pulmonary embolism: IVC filter placed (05/31/17) Type II [place], 2/2 demand ischemia (06/05) Dementia History of GI bleed with perforated ulcer (2014) Depression Atrial arrhythmia (not atrial fibrillation) Chronic right hip pain secondary to osteoarthritis 06/12/17 hospital admission for swing bed Admission to swing bed at [facility] - hospitalist service to follow , (Dr. Holly Mitchell, attending) for increasing strength and functional abilities, and medication administration. Consult PT/OT for strengthening and improving functional abilities. IRU screen ordered, as family would like for patient to transfer to IRU if possible. Consult speech therapy for dysphagia/diet recommendations. Daughter reports patient has not been eating much the last day or 2. Will also encourage Mighty Shakes. Continue amlodipine and clonidine for blood pressure control. Goal is to keep systolic blood pressure less than 140. Fam of [employer] monitor recommended as outpatient per cardiology if family wishes. (Per Dr. Brenna Rangel). Recommend potassium> 4 and magnesium > 2. Follow-up with outpatient neurologist in 3-4 weeks. Continue Keppra until then. Monitor for mood disturbances/suicidal ideation while taking Keppra. Daughter would like to defer scheduling this until discharge because based on where she is discharged, will determine which neurologist she sees. No driving, swimming or bathing alone for 6 months. Follow-up with neurosurgery (Dr. Dyson) in 6-[address] head. Schedule with Dr. Wilde, interventional radiology, in 6 months to remove IVC filter. SCDs for DVT prophylaxis. Anticoagulation contraindicated at this point given the recent brain bleed. Continue memantine and donepezil for dementia. Continue sertraline for depression. Continue tamsulosin for urinary retention. Patient and family request DO NOT RESUSCITATE status. Care to return to ARASELI Stanford, at [facility] on dismissal. 06/13/17 Start Keflex 500 mg by mouth 3 times a day on 06/13/2017 for [id number] on culture to see if antibiotics need to be adjusted. Regarding acute kidney injury, will give IV fluids 2 L for elevated BUN/ creatinine. Encourage by mouth fluids. Medications reviewed and the patient is not on any nephrotoxins. Blood pressure has been normal. Recheck basic metabolic profile and CBC tomorrow. 06/14/17 Will start Rocephin [address] of Keflex until culture is resulted given her temp elevation and elevated WBC. Recheck basic metabolic profile and CBC tomorrow. Continue PT/OT for continued strengthening. IRU screen is pending. Family would like for her to be in IRU if there is availability. Give another liter of NS at 100cc/hr given her continued elevation in Cr/BU 06/14/17 10:26 06/15/17 Continue Rocephin for UTI. Preliminary report showing growth of Escherichia coli. Sensitivity is not resulted yet. WBC is improved today. Her creatinine and BUN improved with IV fluids, however, her weight is up 5 kg since admission. Her O2 sats remain stable at 94. She's not short of breath. Will continue to monitor. Repeat BMP in a.m. Decrease Keppra dosing down to once daily to see if this helps with her drowsiness. Her hemoglobin is down over a point since admission, but this is likely dilutional. Will check CBC in the a.m.
[2017-06-16] MEDS: LEVETIRACETAM 500 MG TABLET PO SCH (21:48)
[2017-06-16] MEDS: DONEPEZIL 10 MG TABLET PO SCH (21:48)
[2017-06-16] MEDS: SERTRALINE 50 MG TABLET PO SCH (21:48)
[2017-06-16] MEDS: TAMSULOSIN 0.4 MG CAPSULE PO SCH (21:48)
[2017-06-17] MEDS: AMLODIPINE 10 MG TABLET PO SCH (08:41)
[2017-06-17] MEDS: POLYETHYL GLYCOL 3350 17gm PACKET PO SCH (08:41)
[2017-06-17] MEDS: MEMANTINE 10 MG TABLET PO SCH ×2 (08:41→20:59)
[2017-06-17] MEDS: CEFTRIAXONE 1 G in NS 100 ML IV SCH (09:34)
[2017-06-17] MEDS: ACETAMINOPHEN 500 MG TABLET PO PRN (12:44)
[2017-06-17] MEDS ORDERED: FUROSEMIDE 20 MG TABLET PO ONE (12:45)
--- NOTE | 2017-06-17 17:22 | Progress Note ---
- Date 06/17/17 Subjective: Seen in her room with her daughter and her son-in-law Tripp Berg. Family is expressing concern over her continued sedation and inability to work with physical therapy. They also bring up in the issue of her having continued right hip pain and while knowing that she is not a surgical candidate are asking for orthopedics to evaluate the potential value of a steroid injection or equivalent treatment Objective Vital signs: Temperature 97.7 F 06/17/17 14:54 Pulse Rate 86 06/17/17 14:54 Respiratory Rate 18 06/17/17 14:54 Blood Pressure 118/63 06/17/17 14:54 Pulse Oximetry 95 06/17/17 14:54 Height/Weight/BMI: Height 5 ft 6 in Weight 66.4 kg Body Mass Index 21.9 - Constitutional Present: no acute distress, well nourished, well developed, somnolent - Routine HEENT Exam Head: Present: normocephalic, atraumatic Eye: Present: EOMI, PERRL, normal accommodation. Absent: conjunctival icterus ENT: Present: mucous membranes moist, dentition normal - Routine Respiratory Exam Present: CTA bilaterally. Absent: wheezes - Routine Cardiovascular Exam Present: RRR. Absent: murmur - Routine Abdominal Exam Present: soft, normoactive bowel sounds, non distended. Absent: tenderness - Routine Extremities Exam Present: normal capillary refill - Routine Skin Exam Present: dry, warm - Routine Neurological Exam Present: CN II-XII intact, altered mental status - Routine Lymphatic Exam Lymphatic: Absent: adenopathy - Routine Psychiatric Exam Present: normal affect Results - Labs CBC & Chem 7: 06/16/17 04:10 06/16/17 04:10 Microbiology Results: Microbiology 06/13/17 12:06 Urine, Voided (Cc/notcc) Urine Culture - Final Escherichia coli Assessment and Plan (1) Dementia Current visit: Yes Status: Acute (2) Subdural hematoma Current visit: Yes Status: Acute (3) Intraparenchymal hemorrhage of brain Current visit: Yes Status: Acute Assessment and Plan: Impression Intraparenchymal hemorrhage-right occipital, left cerebellar (06/05) Subdural hematoma-right tentorial, left posterior fossa (06/05) Acute ischemia left cerebellar hemisphere, left brachium pontis (06/05) Right common femoral vein DVT-no anticoagulation due to recent brain bleed () Right lower lobe pulmonary embolism: IVC filter placed (05/31/17) Type II [place], 2/2 demand ischemia (06/05) Dementia History of GI bleed with perforated ulcer (2014) Depression Atrial arrhythmia (not atrial fibrillation) Chronic right hip pain secondary to osteoarthritis Acute kidney injury, likely secondary to dehydration Leukocytosis- likely secondary to UTI-patient does not appear septic UTI-culture is pending Plan Continue Rocephin for UTI. Final report showing growth of Escherichia coli that is susceptible to everything but ampicillin once again I'm decreasing the Keppra dose at the request of family. There have been no reported seizures. Dr. Berg I've discussed that this sedation might be multifactorial and secondary to the head trauma itself. 2 point hemoglobin drop is associated with 6 kg fluid gain. Would consider regarding a particular site count with the next draw on the CBC but unless patient becomes symptomatic I would wait perhaps until Sunday Hospital Course Summary Disclaimer: The visit summary below is not to be considered part of the above Progress Note. Hospital Course: Assessment Intraparenchymal hemorrhage-right occipital, left cerebellar (06/05) Subdural hematoma-right tentorial, left posterior fossa (06/05) Acute ischemia left cerebellar hemisphere, left brachium pontis (06/05) Right common femoral vein DVT-no anticoagulation due to recent brain bleed () Right lower lobe pulmonary embolism: IVC filter placed (05/31/17) Type II [place], 2/2 demand ischemia (06/05) Dementia History of GI bleed with perforated ulcer (2014) Depression Atrial arrhythmia (not atrial fibrillation) Chronic right hip pain secondary to osteoarthritis 06/12/17 hospital admission for swing bed Admission to swing bed at [facility] - hospitalist service to follow , (Dr. Holly Mitchell, attending) for increasing strength and functional abilities, and medication administration. Consult PT/OT for strengthening and improving functional abilities. IRU screen ordered, as family would like for patient to transfer to IRU if possible. Consult speech therapy for dysphagia/diet recommendations. Daughter reports patient has not been eating much the last day or 2. Will also encourage Mighty Shakes. Continue amlodipine and clonidine for blood pressure control. Goal is to keep systolic blood pressure less than 140. Fam of [employer] (ac[employer] by [employer] monitor recommended as outpatient per cardiology if family wishes. (Per Dr. Brenna Rangel). Recommend potassium> 4 and magnesium > 2. Follow-up with outpatient neurologist in 3-4 weeks. Continue Keppra until then. Monitor for mood disturbances/suicidal ideation while taking Keppra. Daughter would like to defer scheduling this until discharge because based on where she is discharged, will determine which neurologist she sees. No driving, swimming or bathing alone for 6 months. Follow-up with neurosurgery (Dr. Dyson) in 6-[address] head. Schedule with Dr. Wilde, interventional radiology, in 6 months to remove IVC filter. SCDs for DVT prophylaxis. Anticoagulation contraindicated at this point given the recent brain bleed. Continue memantine and donepezil for dementia. Continue sertraline for depression. Continue tamsulosin for urinary retention. Patient and family request DO NOT RESUSCITATE status. Care to return to ARASELI Stanford, at [facility] on dismissal. 06/13/17 Start Keflex 500 mg by mouth 3 times a day on 06/13/2017 for [id number] on culture to see if antibiotics need to be adjusted. Regarding acute kidney injury, will give IV fluids 2 L for elevated BUN/ creatinine. Encourage by mouth fluids. Medications reviewed and the patient is not on any nephrotoxins. Blood pressure has been normal. Recheck basic metabolic profile and CBC tomorrow. 06/14/17 Will start Rocephin [address] of Keflex until culture is resulted given her temp elevation and elevated WBC. Recheck basic metabolic profile and CBC tomorrow. Continue PT/OT for continued strengthening. IRU screen is pending. Family would like for her to be in IRU if there is availability. Give another liter of NS at 100cc/hr given her continued elevation in Cr/BU 06/14/17 10:26 06/15/17 Continue Rocephin for UTI. Preliminary report showing growth of Escherichia coli. Sensitivity is not resulted yet. WBC is improved today. Her creatinine and BUN improved with IV fluids, however, her weight is up 5 kg since admission. Her O2 sats remain stable at 94. She's not short of breath. Will continue to monitor. Repeat BMP in a.m. Decrease Keppra dosing down to once daily to see if this helps with her drowsiness. Her hemoglobin is down over a point since admission, but this is likely dilutional. Will check CBC in the a.m.
[2017-06-17] MEDS: SERTRALINE 50 MG TABLET PO SCH (20:58)
[2017-06-17] MEDS: DONEPEZIL 10 MG TABLET PO SCH (20:58)
[2017-06-17] MEDS: LEVETIRACETAM 250 MG TABLET PO SCH (20:58)
[2017-06-17] MEDS: TAMSULOSIN 0.4 MG CAPSULE PO SCH (20:59)
[2017-06-17] MEDS: SALINE FLUSH 10ml SYRINGE IV PRN (21:04)
[2017-06-18] MEDS: AMLODIPINE 10 MG TABLET PO SCH (08:26)
[2017-06-18] MEDS: MEMANTINE 10 MG TABLET PO SCH ×2 (08:26→20:14)
[2017-06-18] MEDS: POLYETHYL GLYCOL 3350 17gm PACKET PO SCH (08:27)
[2017-06-18] MEDS: CEFTRIAXONE 1 G in NS 100 ML IV SCH (09:50)
--- NOTE | 2017-06-18 09:57 | XRay Report ---
Indication: pain PROCEDURE: XR pelvis w/ 1 view RT hip: Encounter: Initial Comparison: None. Findings: There are moderate changes of osteoarthritis involving the right hip joint. The sacroiliac joints appear fairly symmetric. There is no definite effusion. There are no significant arthritic changes. The mineralization and the alignment appear well preserved. There is no definite periosteal reaction or bony lesion. There is no focal soft tissue swelling. There is no clear displaced fracture or bony destructive process. No dislocation or subluxation. No radiopaque foreign body. IMPRESSION: No definite bony destructive process. .
--- NOTE | 2017-06-18 14:47 | Orthopedic Consult Note ---
Orthopedic Consultation [facility] - Consultation Info Consult Date: 06/18/17 Attending Physician: Reymundo Morgan MD Consult Reason: joint pain (right hip) - History of Present Illness Mrs. Lemos is an 81 year old female who is presently under the care of the hospital service. She is her under swing bed status. Orthopaedics has been consulted for evaluation of right hip pain. She has significant dementia and no family is present on our visit. This patient is seen by Dr. Morgan and Vidal MARX. The patient presently denies that she has hip pain. X-rays of her right hip have been reviewed. They do show right hip joint space narrowing, subchondral sclerosis and minimal femoral head flattening. No fracture or farhad lesions are visualized. Her recent health history is significant for a subdural hematoma and intraparenchymal hemorrhage. Her daughter noticed she was not acting her normal self on 05/26/17 and took her to [facility] were a CT demonstrated the above mentioned findings. She was transferred to [facility]. Dr. Dyson evaluted her and did not recommend surgery, instead observation and serial CT scans. Cardiology was consulted during her stay for an arrhythmia. Dr. Rangel evaluated her and felt she had an NSTEMI. She also has a right common femoral vein DVT, but is not a candidate for anticoagulation due to her recent brain bleed. In addition she had RLL pulmonary embolism and is status post IVC filter placement on 05/31/17. Review of Systems ROS unobtainable: due to dementia [facility] Patient Stated Medical History Cerebrovascular Accident Yes Dementia Yes Transient Ischemic Attacks ( Yes TIA) Dental Problems Yes: dentures, partial Dysphagia Yes Cardiac Arrhythmia Yes Pulmonary Embolism Yes Gastrointestinal Bleeding Yes: "about a year ago" Hx Incontinence Yes Osteoarthritis Yes Shingles Yes Depression Yes Post Menopausal Yes Medical History Updates: Patient's home medications prior to [place] admission were: Donepezil 10 mg at at bedtime, sertraline 50 mg at at bedtime, amantadine 10 mg twice a day. New medications started during admission were: Clonidine 0.1 mg twice a day, amlodipine 10 mg daily, levetiracetam 5 mg twice a day, tamsulosin 0.4 mg daily, acetaminophen 500 mg every 6 hours when necessary, milk of mag when necessary, docusate 100 twice a day, and MiraLAX daily PRN. Surgical History: Cholecystectomy, appendectomy, bladder repair - Social History Current residence: Apartment/Private Home Medications Home Medications Medication Instructions Recorded Confirmed Type Acetaminophen [Tylenol] 325 - 650 mg PO PRN 06/12/17 06/12/17 History Donepezil HCl [Aricept] 10 mg PO HS 06/12/17 06/12/17 History Memantine HCl 10 mg PO BID 06/12/17 06/12/17 History Sertraline HCl [Zoloft] 50 mg PO HS 06/12/17 06/12/17 History Allergies Allergy/AdvReac Type Severity Reaction Status Date / Time No Known Allergies Allergy Unverified 06/12/17 15:29 Orthopedic Exam Vital signs: Temperature 98.4 F 06/18/17 07:27 Pulse Rate 94 06/18/17 07:27 Respiratory Rate 16 06/18/17 07:27 Blood Pressure 130/65 06/18/17 07:27 Pulse Oximetry 94 06/18/17 07:27 - Constitutional General Appearance: Present: alert Comments: confused secondary to dementia - Respiratory Exam Present: non-labored - Cardiovascular Exam Capillary Refill: < 2-3 Seconds - Extremities Exam Present: normal capillary refill Comments: negative log roll. Neutral alignment and equal leg length. - Integumentary Exam Present: pink, warm, dry - Lymphatic Lymphatic: Absent: adenopathy - Neurological Exam Present: intact to light touch - Psychiatric Exam Present: alert - Labs Result Diagrams: 06/16/17 04:10 06/16/17 04:10 H & H 06/13/17 06/14/17 06/15/17 Range/Units 04:20 04:38 05:31 Hgb 12.6 11.8 L 11.2 L (12-16) GM/DL Hct 40.8 37.1 35.8 L (36-46) % 06/16/17 Range/Units 04:10 Hgb 10.6 L (12-16) GM/DL Hct 33.6 L (36-46) % - Diagnostic results Hip x-ray: report reviewed, image reviewed Impression and Recommendation (1) Osteoarthritis of right hip Current visit: Yes Qualifiers: Osteoarthritis type: primary Qualified Code(s): M16.11 - Unilateral primary osteoarthritis, right hip Status: Acute Dr. Morgan recommends that if her hip pain returns an intra articular right hip injection under fluoroscopy. This can be performed by the radiology department. (2) Subdural hematoma Current visit: Yes Status: Acute (3) Intraparenchymal hemorrhage of brain Current visit: Yes Status: Acute Hospital Course Summary Disclaimer: The visit summary below is not to be considered part of the above Progress Note. Hospital Course: Assessment Intraparenchymal hemorrhage-right occipital, left cerebellar (06/05) Subdural hematoma-right tentorial, left posterior fossa (06/05) Acute ischemia left cerebellar hemisphere, left brachium pontis (06/05) Right common femoral vein DVT-no anticoagulation due to recent brain bleed () Right lower lobe pulmonary embolism: IVC filter placed (05/31/17) Type II [place], 2/2 demand ischemia (06/05) Dementia History of GI bleed with perforated ulcer (2014) Depression Atrial arrhythmia (not atrial fibrillation) Chronic right hip pain secondary to osteoarthritis 06/12/17 hospital admission for swing bed Admission to swing bed at [facility] - hospitalist service to follow , (Dr. Holly Mitchell, attending) for increasing strength and functional abilities, and medication administration. Consult PT/OT for strengthening and improving functional abilities. IRU screen ordered, as family would like for patient to transfer to IRU if possible. Consult speech therapy for dysphagia/diet recommendations. Daughter reports patient has not been eating much the last day or 2. Will also encourage Mighty Shakes. Continue amlodipine and clonidine for blood pressure control. Goal is to keep systolic blood pressure less than 140. [facility] monitor recommended as outpatient per cardiology if family wishes. (Per Dr. Brenna Rangel). Recommend potassium> 4 and magnesium > 2. Follow-up with outpatient neurologist in 3-4 weeks. Continue Keppra until then. Monitor for mood disturbances/suicidal ideation while taking Keppra. Daughter would like to defer scheduling this until discharge because based on where she is discharged, will determine which neurologist she sees. No driving, swimming or bathing alone for 6 months. Follow-up with neurosurgery (Dr. Dyson) in 6-[address] head. Schedule with Dr. Wilde, interventional radiology, in 6 months to remove IVC filter. SCDs for DVT prophylaxis. Anticoagulation contraindicated at this point given the recent brain bleed. Continue memantine and donepezil for dementia. Continue sertraline for depression. Continue tamsulosin for urinary retention. Patient and family request DO NOT RESUSCITATE status. Care to return to ARASELI Stanford, at [facility] on dismissal. 06/13/17 Start Keflex 500 mg by mouth 3 times a day on 06/13/2017 for [id number] on culture to see if antibiotics need to be adjusted. Regarding acute kidney injury, will give IV fluids 2 L for elevated BUN/ creatinine. Encourage by mouth fluids. Medications reviewed and the patient is not on any nephrotoxins. Blood pressure has been normal. Recheck basic metabolic profile and CBC tomorrow. 06/14/17 Will start Rocephin [address] of Keflex until culture is resulted given her temp elevation and elevated WBC. Recheck basic metabolic profile and CBC tomorrow. Continue PT/OT for continued strengthening. IRU screen is pending. Family would like for her to be in IRU if there is availability. Give another liter of NS at 100cc/hr given her continued elevation in Cr/BU 06/14/17 10:26 06/15/17 Continue Rocephin for UTI. Preliminary report showing growth of Escherichia coli. Sensitivity is not resulted yet. WBC is improved today. Her creatinine and BUN improved with IV fluids, however, her weight is up 5 kg since admission. Her O2 sats remain stable at 94. She's not short of breath. Will continue to monitor. Repeat BMP in a.m. Decrease Keppra dosing down to once daily to see if this helps with her drowsiness. Her hemoglobin is down over a point since admission, but this is likely dilutional. Will check CBC in the a.m.
[2017-06-18] MEDS: LEVETIRACETAM 250 MG TABLET PO SCH (20:14)
[2017-06-18] MEDS: SERTRALINE 50 MG TABLET PO SCH (20:14)
[2017-06-18] MEDS: DONEPEZIL 10 MG TABLET PO SCH (20:14)
[2017-06-18] MEDS: TAMSULOSIN 0.4 MG CAPSULE PO SCH (20:15)
[2017-06-19] MEDS: MEMANTINE 10 MG TABLET PO SCH ×2 (09:37→20:38)
[2017-06-19] MEDS: POLYETHYL GLYCOL 3350 17gm PACKET PO SCH (09:37)
[2017-06-19] MEDS: AMLODIPINE 10 MG TABLET PO SCH (09:37)
[2017-06-19] MEDS: CEFTRIAXONE 1 G in NS 100 ML IV SCH (09:37)
[2017-06-19] MEDS: ACETAMINOPHEN 500 MG TABLET PO PRN (09:43)
--- NOTE | 2017-06-19 14:18 | Progress Note ---
<Hilary Hearn - Last Filed: 06/19/17 14:15> - Date 06/19/17 Subjective: Patient is seen sitting today sitting up in her chair. She is more alert today than she has been when I saw her last week. She states she is feeling well, but she is ready to lay down in bed. She was able to eat practiced herself this morning. She has no complaints of pain at this time. Specifically, no headache or lightheadedness, and no pain in her right lower leg where she has a DVT. Objective Vital signs: Temperature 98.3 F 06/19/17 08:00 Pulse Rate 86 06/19/17 08:00 Respiratory Rate 16 06/19/17 08:00 Blood Pressure 136/67 06/19/17 08:00 Pulse Oximetry 95 06/19/17 08:00 Height/Weight/BMI: Height 1.68 m Weight 65.5 kg Body Mass Index 21.9 - Constitutional Present: no acute distress, well nourished, well developed, thin - Routine HEENT Exam Head: Present: normocephalic, atraumatic - Routine Respiratory Exam Present: CTA bilaterally. Absent: wheezes - Routine Cardiovascular Exam Present: RRR, S1, S2. Absent: murmur - Routine Abdominal Exam Present: soft, normoactive bowel sounds, non distended. Absent: tenderness - Routine Extremities Exam Present: edema (1-2+ right lower extremity), no edema (left lower extremity), normal capillary refill - Routine Skin Exam Present: dry, warm - Routine Neurological Exam Present: alert. Absent: oriented X3 (oriented to self. This is normal for patient.) - Routine Lymphatic Exam Lymphatic: Absent: adenopathy - Routine Psychiatric Exam Present: normal affect, cooperative Results - Labs CBC & Chem 7: 06/16/17 04:10 06/16/17 04:10 Microbiology Results: Microbiology 06/13/17 12:06 Urine, Voided (Cc/notcc) Urine Culture - Final Escherichia coli Assessment and Plan (1) Dementia Current visit: Yes Status: Acute (2) Subdural hematoma Current visit: No Status: Acute (3) Intraparenchymal hemorrhage of brain Current visit: No Status: Acute Assessment and Plan: Impression Intraparenchymal hemorrhage-right occipital, left cerebellar (06/05) Subdural hematoma-right tentorial, left posterior fossa (06/05) Acute ischemia left cerebellar hemisphere, left brachium pontis (06/05) Right common femoral vein DVT-no anticoagulation due to recent brain bleed () Right lower lobe pulmonary embolism: IVC filter placed (05/31/17) Type II SD, 2/2 demand ischemia (06/05) Anemia, unspecified Dementia History of GI bleed with perforated ulcer (2014) Depression Atrial arrhythmia (not atrial fibrillation) Chronic right hip pain secondary to osteoarthritis Acute kidney injury, likely secondary to dehydration-resolves Leukocytosis- likely secondary to UTI--resolved UTI-Escherichia coli (pansensitive except to ampicillin) Plan She seems to be more alert with the decreased dose of Keppra (she is now down to 250 mg once a day) vs improving from her UTI with Rocephin. She's had 6 days of Rocephin for her UTI. Currently afebrile, without urinary symptoms, normal WBC. Discussed with Dr. Deleon-cal DC Rocephin at this time. Dr. Morgan has seen patient and recommended steroid injection under fluoroscopy ( by radiology) if she continues to have hip pain. Repeat CBC and BMP tomorrow to follow her dropping hemoglobin, electrolytes and renal function. Hospital Course Summary Disclaimer: The visit summary below is not to be considered part of the above Progress Note. Hospital Course: Impression Intraparenchymal hemorrhage-right occipital, left cerebellar (06/05) Subdural hematoma-right tentorial, left posterior fossa (06/05) Acute ischemia left cerebellar hemisphere, left brachium pontis (06/05) Right common femoral vein DVT-no anticoagulation due to recent brain bleed () Right lower lobe pulmonary embolism: IVC filter placed (05/31/17) Anemia, unspecified Type II SD, 2/2 demand ischemia (06/05) Dementia History of GI bleed with perforated ulcer (2014) Depression Atrial arrhythmia (not atrial fibrillation) Chronic right hip pain secondary to osteoarthritis Acute kidney injury, likely secondary to dehydration-resolves Leukocytosis- likely secondary to UTI--resolved UTI-Escherichia coli (pansensitive except to ampicillin) 06/12/17 hospital admission for swing bed Admission to swing bed at [facility] - hospitalist service to follow , (Dr. Holly Mitchell, attending) for increasing strength and functional abilities, and medication administration. Consult PT/OT for strengthening and improving functional abilities. IRU screen ordered, as family would like for patient to transfer to IRU if possible. Consult speech therapy for dysphagia/diet recommendations. Daughter reports patient has not been eating much the last day or 2. Will also encourage Mighty Shakes. Continue amlodipine and clonidine for blood pressure control. Goal is to keep systolic blood pressure less than 140. Fam of [place] monitor recommended as outpatient per cardiology if family wishes. (Per Dr. Brenna Rangel). Recommend potassium> 4 and magnesium > 2. Follow-up with outpatient neurologist in 3-4 weeks. Continue Keppra until then. Monitor for mood disturbances/suicidal ideation while taking Keppra. Daughter would like to defer scheduling this until discharge because based on where she is discharged, will determine which neurologist she sees. No driving, swimming or bathing alone for 6 months. Follow-up with neurosurgery (Dr. Dyson) in 6-[address] head. Schedule with Dr. Wilde, interventional radiology, in 6 months to remove IVC filter. SCDs for DVT prophylaxis. Anticoagulation contraindicated at this point given the recent brain bleed. Continue memantine and donepezil for dementia. Continue sertraline for depression. Continue tamsulosin for urinary retention. Patient and family request DO NOT RESUSCITATE status. Care to return to ARASELI Stanford, at [facility] on dismissal. 06/13/17 Start Keflex 500 mg by mouth 3 times a day on 06/13/2017 for [id number] on culture to see if antibiotics need to be adjusted. Regarding acute kidney injury, will give IV fluids 2 L for elevated BUN/ creatinine. Encourage by mouth fluids. Medications reviewed and the patient is not on any nephrotoxins. Blood pressure has been normal. Recheck basic metabolic profile and CBC tomorrow. 06/14/17 Will start Rocephin [address] of Keflex until culture is resulted given her temp elevation and elevated WBC. Recheck basic metabolic profile and CBC tomorrow. Continue PT/OT for continued strengthening. IRU screen is pending. Family would like for her to be in IRU if there is availability. Give another liter of NS at 100cc/hr given her continued elevation in Cr/BU 06/14/17 10:26 06/15/17 Continue Rocephin for UTI. Preliminary report showing growth of Escherichia coli. Sensitivity is not resulted yet. WBC is improved today. Her creatinine and BUN improved with IV fluids, however, her weight is up 5 kg since admission. Her O2 sats remain stable at 94. She's not short of breath. Will continue to monitor. Repeat BMP in a.m. Decrease Keppra dosing down to once daily to see if this helps with her drowsiness. Her hemoglobin is down over a point since admission, but this is likely dilutional. Will check CBC in the a.m. 06/16/17 Continue Rocephin for UTI. Preliminary report showing growth of Escherichia coli. Sensitivity is not resulted yet. WBC is improved today. Her creatinine and BUN improved with IV fluids, however, her weight is up 5 kg since admission. Her O2 sats remain stable at 94. She's not short of breath. Will continue to monitor. Repeat BMP in a.m. Decrease Keppra dosing down to once daily to see if this helps with her drowsiness. Her hemoglobin is down over a point since admission, but this is likely dilutional. Will check CBC in the a.m. 06/17/17 Continue Rocephin for UTI. Final report showing growth of Escherichia coli that is susceptible to everything but ampicillin once again I'm decreasing the Keppra dose at the request of family. There have been no reported seizures. Dr. Berg I've discussed that this sedation might be multifactorial and secondary to the head trauma itself. 2 point hemoglobin drop is associated with 6 kg fluid gain. Would consider regarding a particular site count with the next draw on the CBC but unless patient becomes symptomatic I would wait perhaps until Sunday06/19/17 She seems to be more alert with the decreased dose of Keppra (she is now down to 250 mg once a day) vs improving from her UTI with Rocephin. She's had 6 days of Rocephin for her UTI. Currently afebrile, without urinary symptoms, normal WBC. Discussed with Dr. Isabel RUDOLPH Rocephinoel at this time. Dr. Morgan has seen patient and recommended steroid injection under fluoroscopy ( by radiology) if she continues to have hip pain. Repeat CBC and BMP tomorrow to follow her dropping hemoglobin, electrolytes and renal function. 06/19/17 14:42 <Ganga Roberts - Last Filed: 06/19/17 20:31> - Date 06/19/17 Objective Vital signs: Temperature 96.9 F 06/19/17 15:47 Pulse Rate 88 06/19/17 15:47 Respiratory Rate 24 06/19/17 15:47 Blood Pressure 129/62 06/19/17 15:47 Pulse Oximetry 97 06/19/17 15:47 Height/Weight/BMI: Height 5 ft 6 in Weight 65.5 kg Body Mass Index 21.9 Results - Labs CBC & Chem 7: 06/16/17 04:10 06/16/17 04:10 Microbiology Results: Microbiology 06/13/17 12:06 Urine, Voided (Cc/notcc) Urine Culture - Final Escherichia coli Assessment and Plan (1) Dementia Current visit: Yes Status: Acute (2) Subdural hematoma Current visit: No Status: Acute (3) Intraparenchymal hemorrhage of brain Current visit: No Status: Acute Assessment and Plan: Seen and examined patient on same day as the above note. Agree with subjective, physical exam, impression and plan. Comprehensive physical findings correlate to the above note. Briefly discussed her condition with her son-in-law Dr. Berg at bedside today Documented on [employer] speech to text. Efforts to correct speech recognition errors performed, but variation may exist Hospital Course Summary Disclaimer: The visit summary below is not to be considered part of the above Progress Note.
[2017-06-19] MEDS: LEVETIRACETAM 250 MG TABLET PO SCH (20:38)
[2017-06-19] MEDS: TAMSULOSIN 0.4 MG CAPSULE PO SCH (20:38)
[2017-06-19] MEDS: SERTRALINE 50 MG TABLET PO SCH (20:38)
[2017-06-19] MEDS: DONEPEZIL 10 MG TABLET PO SCH (20:38)
[2017-06-19] MEDS: SALINE FLUSH 10ml SYRINGE IV PRN (20:42)
[2017-06-20] MEDS: AMLODIPINE 10 MG TABLET PO SCH (08:53)
[2017-06-20] MEDS: POLYETHYL GLYCOL 3350 17gm PACKET PO SCH (08:53)
[2017-06-20] MEDS: MEMANTINE 10 MG TABLET PO SCH ×2 (08:53→20:49)
[2017-06-20] MEDS: ACETAMINOPHEN 500 MG TABLET PO PRN (12:11)
--- NOTE | 2017-06-20 14:02 | Progress Note ---
<Hilary Hearn - Last Filed: 06/20/17 13:58> - Date 06/20/17 Subjective: Pt is seen lying in her bed. She states she wants to go home. She says she will go home tomorrow. Wonders why her isn't here this morning. She has no complaints of pain, headache, CP or SOA. Unsure if she is eating very well or if her bowels are moving. Doesn't feel she is getting stronger but says if she goes home she will get stronger there. She not been eating per nursing staff. She is refusing therapy because she is so tired. When she does work with therapy, they find it hard to get her to participate both d/t her dementia and her lack of motivation. Objective Vital signs: Temperature 98.5 F 06/20/17 07:35 Pulse Rate 94 06/20/17 07:35 Respiratory Rate 18 06/20/17 07:35 Blood Pressure 116/66 06/20/17 07:35 Pulse Oximetry 95 06/20/17 07:35 Height/Weight/BMI: Height 1.68 m Weight 65.7 kg Body Mass Index 21.9 - Constitutional Present: no acute distress, thin - Routine Respiratory Exam Present: CTA bilaterally. Absent: wheezes - Routine Cardiovascular Exam Present: irregularly irregular. Absent: murmur - Routine Abdominal Exam Present: soft, normoactive bowel sounds, non distended. Absent: tenderness - Routine Extremities Exam Present: edema (1-2+ RLE (DVT)), no edema (LLE), normal capillary refill - Routine Skin Exam Present: dry, warm - Routine Neurological Exam Present: alert. Absent: oriented X3 - Routine Lymphatic Exam Lymphatic: Absent: adenopathy - Routine Psychiatric Exam Present: normal affect, cooperative Results - Labs CBC & Chem 7: 06/20/17 04:16 06/20/17 04:16 Microbiology Results: Microbiology 06/13/17 12:06 Urine, Voided (Cc/notcc) Urine Culture - Final Escherichia coli Assessment and Plan (1) Dementia Status: Chronic (2) Subdural hematoma Status: Acute (3) Intraparenchymal hemorrhage of brain Status: Acute Assessment and Plan: Impression Intraparenchymal hemorrhage-right occipital, left cerebellar (06/05) Subdural hematoma-right tentorial, left posterior fossa (06/05) Acute ischemia left cerebellar hemisphere, left brachium pontis (06/05) Right common femoral vein DVT-no anticoagulation due to recent brain bleed () Right lower lobe pulmonary embolism: IVC filter placed (05/31/17) Type II IL, 2/2 demand ischemia (06/05) Anemia, unspecified Dementia History of GI bleed with perforated ulcer (2014) Depression Atrial arrhythmia Chronic right hip pain secondary to osteoarthritis Acute kidney injury, likely secondary to dehydration-resolved Leukocytosis- likely secondary to UTI--resolved UTI-Escherichia coli (pansensitive except to ampicillin)-completed tx with Rocephin 06/19 Plan She is not making any gains. Likelihood of her going to IRU is very low. CM will talk with family about considering mcc placement. Could consider mirtazipine to help with possible depression and lack of appetite. Will offer to family. Hemoglobin continues to drop. Likely d/t her anorexia. Hospital Course Summary Disclaimer: The visit summary below is not to be considered part of the above Progress Note. Hospital Course: Impression Intraparenchymal hemorrhage-right occipital, left cerebellar (06/05) Subdural hematoma-right tentorial, left posterior fossa (06/05) Acute ischemia left cerebellar hemisphere, left brachium pontis (06/05) Right common femoral vein DVT-no anticoagulation due to recent brain bleed () Right lower lobe pulmonary embolism: IVC filter placed (05/31/17) Anemia, unspecified Type II IL, 2/2 demand ischemia (06/05) Dementia History of GI bleed with perforated ulcer (2014) Depression Atrial arrhythmia (not atrial fibrillation) Chronic right hip pain secondary to osteoarthritis Acute kidney injury, likely secondary to dehydration-resolves Leukocytosis- likely secondary to UTI--resolved UTI-Escherichia coli (pansensitive except to ampicillin) 06/12/17 hospital admission for swing bed Admission to swing bed at [facility] - hospitalist service to follow , (Dr. Holly Mitchell, attending) for increasing strength and functional abilities, and medication administration. Consult PT/OT for strengthening and improving functional abilities. IRU screen ordered, as family would like for patient to transfer to IRU if possible. Consult speech therapy for dysphagia/diet recommendations. Daughter reports patient has not been eating much the last day or 2. Will also encourage Mighty Shakes. Continue amlodipine and clonidine for blood pressure control. Goal is to keep systolic blood pressure less than 140. Fam of [facility] monitor recommended as outpatient per cardiology if family wishes. (Per Dr. Brenna Rangel). Recommend potassium> 4 and magnesium > 2. Follow-up with outpatient neurologist in 3-4 weeks. Continue Keppra until then. Monitor for mood disturbances/suicidal ideation while taking Keppra. Daughter would like to defer scheduling this until discharge because based on where she is discharged, will determine which neurologist she sees. No driving, swimming or bathing alone for 6 months. Follow-up with neurosurgery (Dr. Dyson) in 6-[address] head. Schedule with Dr. Wilde, interventional radiology, in 6 months to remove IVC filter. SCDs for DVT prophylaxis. Anticoagulation contraindicated at this point given the recent brain bleed. Continue memantine and donepezil for dementia. Continue sertraline for depression. Continue tamsulosin for urinary retention. Patient and family request DO NOT RESUSCITATE status. Care to return to ARASELI Stanford, at [facility] on dismissal. 06/13/17 Start Keflex 500 mg by mouth 3 times a day on 06/13/2017 for [id number] on culture to see if antibiotics need to be adjusted. Regarding acute kidney injury, will give IV fluids 2 L for elevated BUN/ creatinine. Encourage by mouth fluids. Medications reviewed and the patient is not on any nephrotoxins. Blood pressure has been normal. Recheck basic metabolic profile and CBC tomorrow. 06/14/17 Will start Rocephin [address] of Keflex until culture is resulted given her temp elevation and elevated WBC. Recheck basic metabolic profile and CBC tomorrow. Continue PT/OT for continued strengthening. IRU screen is pending. Family would like for her to be in IRU if there is availability. Give another liter of NS at 100cc/hr given her continued elevation in Cr/BU 06/14/17 10:26 06/15/17 Continue Rocephin for UTI. Preliminary report showing growth of Escherichia coli. Sensitivity is not resulted yet. WBC is improved today. Her creatinine and BUN improved with IV fluids, however, her weight is up 5 kg since admission. Her O2 sats remain stable at 94. She's not short of breath. Will continue to monitor. Repeat BMP in a.m. Decrease Keppra dosing down to once daily to see if this helps with her drowsiness. Her hemoglobin is down over a point since admission, but this is likely dilutional. Will check CBC in the a.m. 06/16/17 Continue Rocephin for UTI. Preliminary report showing growth of Escherichia coli. Sensitivity is not resulted yet. WBC is improved today. Her creatinine and BUN improved with IV fluids, however, her weight is up 5 kg since admission. Her O2 sats remain stable at 94. She's not short of breath. Will continue to monitor. Repeat BMP in a.m. Decrease Keppra dosing down to once daily to see if this helps with her drowsiness. Her hemoglobin is down over a point since admission, but this is likely dilutional. Will check CBC in the a.m. 06/17/17 Continue Rocephin for UTI. Final report showing growth of Escherichia coli that is susceptible to everything but ampicillin once again I'm decreasing the Keppra dose at the request of family. There have been no reported seizures. Dr. Berg I've discussed that this sedation might be multifactorial and secondary to the head trauma itself. 2 point hemoglobin drop is associated with 6 kg fluid gain. Would consider regarding a particular site count with the next draw on the CBC but unless patient becomes symptomatic I would wait perhaps until Sunday06/19/17 She seems to be more alert with the decreased dose of Keppra (she is now down to 250 mg once a day) vs improving from her UTI with Rocephin. She's had 6 days of Rocephin for her UTI. Currently afebrile, without urinary symptoms, normal WBC. Discussed with Dr. Deleon-cal DC Rocephin at this time. Dr. Morgan has seen patient and recommended steroid injection under fluoroscopy ( by radiology) if she continues to have hip pain. Repeat CBC and BMP tomorrow to follow her dropping hemoglobin, electrolytes and renal function. 06/20/17 She is not making any gains. Likelihood of her going to IRU is very low. CM will talk with family about considering mcc placement. Could consider mirtazipine to help with possible depression and lack of appetite. Will offer to family. Hemoglobin continues to drop. Likely d/t her anorexia. <Ganga Roberts P - Last Filed: 06/21/17 22:21> - Date 06/21/17 Objective Vital signs: Temperature 97.9 F 06/21/17 15:28 Pulse Rate 95 06/21/17 15:28 Respiratory Rate 17 06/21/17 15:28 Blood Pressure 127/65 06/21/17 15:28 Pulse Oximetry 97 06/21/17 15:28 Height/Weight/BMI: Height 5 ft 6 in Weight 66.9 kg Body Mass Index 21.9 Results - Labs CBC & Chem 7: 06/20/17 04:16 06/20/17 04:16 Microbiology Results: Microbiology 06/13/17 12:06 Urine, Voided (Cc/notcc) Urine Culture - Final Escherichia coli Assessment and Plan (1) Dementia Status: Chronic (2) Subdural hematoma Status: Acute (3) Intraparenchymal hemorrhage of brain Status: Acute Hospital Course Summary Disclaimer: The visit summary below is not to be considered part of the above Progress Note. Addendum entered and electronically signed by ARASELI Downing 06/21/17 15:38 : Late entry for Jun 20: Discussed with daughter opts at DC. She would like to have someone from [facility] screen pt for SNU. If doesn't qualify, will consider NH placement at [place] or in [place]. Daughter also ok with trial of mirtazipine for depression and appetite. Will start 7.5mq q hs and DC sertraline.
[2017-06-20] MEDS: LEVETIRACETAM 250 MG TABLET PO SCH (20:50)
[2017-06-20] MEDS: TAMSULOSIN 0.4 MG CAPSULE PO SCH (20:50)
[2017-06-20] MEDS: SERTRALINE 50 MG TABLET PO SCH (20:50)
[2017-06-20] MEDS: DONEPEZIL 10 MG TABLET PO SCH (20:50)
[2017-06-20] MEDS ORDERED: MIRTAZAPINE 15 MG TABLET PO SCH (21:00)
[2017-06-21 07:36] VITALS: RESP 17
[2017-06-21] MEDS: MEMANTINE 10 MG TABLET PO SCH (09:41)
[2017-06-21] MEDS: AMLODIPINE 10 MG TABLET PO SCH (09:44)
[2017-06-21] MEDS: POLYETHYL GLYCOL 3350 17gm PACKET PO SCH (09:48)
--- NOTE | 2017-06-21 14:28 | Extended Care Facility Orders ---
Admission Orders Admit to:: Half-Way Allergies/Adverse Reactions: Allergies No Known Allergies Allergy (Unverified 06/12/17 15:29) Admitting Diagnosis: post stroke Admitting Physician: Ganga Roberts MD Attending Physician: Ganga Roberts MD Code Status: Do Not Resuscitate Anticiapted Length of Stay: greater than 30 days Rehab Potential: fair Rehab Prognosis: fair Diet: 06/12/17 Dinner Regular Diet [DIET] Diet Modifications: Food Consistency: CHMEAT Other Diet Modifiers: SOFT NOSTRAW Comment: thin liquids w/covered cup Wound/Incision Care: n/a May use Facility Protocol or Standing Orders: Yes May have flu vaccine: Yes Evaluations/Treatment: PT, OT Half-Way Certification: I certify that SNF services are required to be given on an Inpatient basis because of the patients need for shelter care on a continuing basis for the condition(s) for which he/she received inpatient hospital services prior to his/her transfer to the SNF. SNF inpatient care is necessary for the following reasons Indication for Half-Way: Neuro Assessment, Med Admininistration - Additional Information In Event of Arrest: Do Not Start CPR Resident is Aware of Diagnosis: No (dementia) Referrals: ASHLEY CHANEL PA [Physician Him Assistant] - (F-u to be determined by family depending on where she ends up after SNU admission. No need to schedule appt at this time.)
[2017-06-21 15:29] VITALS: BP 127/65; PULSE 95; TEMP 97.9; O2SAT 97
== END 2017-06-21 16:25 | DRG 949 ==
LOC: MED 14:51 → SUATTDRO 14:51
PROVIDERS: ADMIT Internal Medicine; ATTEND Family Medicine

== ENCOUNTER 2017-10-08 00:10 | Inpatient (IN) ==
[2017-10-08] MEDS ORDERED: SALINE FLUSH 10ml SYRINGE IVF PRN (00:12)
--- NOTE | 2017-10-08 00:18 | Emergency Department Report ---
Lower Extremity Injury HPI - General Stated Complaint: fall, lt hip pain Time Seen by Provider: 10/08/17 00:12 Source: patient, EMS Mode of arrival: EMS Limitations: no limitations - History of Present Illness HPI Narrative: Patient had an unwitnessed fall, it seems that she may have tried to get out of bed, and secondary to weakness over the past 2 months status post UTI, patient fell onto her left hip. Patient was found on the ground with external rotation and shortening of the left leg, and significant pain and tenderness to the left hip. Patient was placed in a pelvic sling, given fentanyl in route for pain control, and currently has no complaint and less she is removed. - Related Data Home Medications Medication Instructions Recorded Confirmed Acetaminophen [Tylenol] 650 mg PO TID 06/12/17 10/08/17 Donepezil HCl [Aricept] 10 mg PO HS 06/12/17 10/08/17 Memantine HCl 10 mg PO BID 06/12/17 10/08/17 Acetaminophen [Pain Relief] 500 mg PO Q4HPRN 09/11/17 10/08/17 Cholecalciferol [Vit. D-3] 1,000 unit PO DAILY 09/11/17 10/08/17 Divalproex [Depakote] 250 mg PO BID 09/11/17 10/08/17 Docusate Sodium [Colace] 100 mg PO BID PRN 09/11/17 10/08/17 Furosemide [Lasix] 20 mg PO BID 09/11/17 10/08/17 Guaifenesin/Dextromethorphan 5 ml PO Q4-6HPRN 09/11/17 10/08/17 [Guaifenesin Dm Syrup] LORazepam [Ativan] 0.5 mg PO Q8H PRN 09/11/17 10/08/17 Levothyroxine Tab [Synthroid] 25 mcg PO ACB 09/11/17 10/08/17 Lisinopril [Prinivil] 10 mg PO DAILY 09/11/17 10/08/17 Melatonin 6 mg PO HS 09/11/17 10/08/17 Mirtazapine [Remeron] 15 mg PO HS 09/11/17 10/08/17 Sertraline [Zoloft] 50 mg PO DAILY 01/23/18 02/19/18 Tensoshapes 2 applicatio TOP BID 09/11/17 10/08/17 Levetiracetam [Keppra] 250 mg PO HS 10/08/17 10/08/17 Previous Rx's Medication Instructions Recorded CloNIDine [Catapres] 0.1 mg PO BID tab 06/21/17 PEG 3350 17gm PACKET [Miralax] 17 gm PO DAILY packet 06/21/17 Tamsulosin [Flomax] 0.4 mg PO HS cap 06/21/17 Allergies Allergy/AdvReac Type Severity Reaction Status Date / Time No Known Allergies Allergy Verified 09/11/17 19:27 Review of Systems All systems: reviewed and negative except as stated PFSH Patient Stated Medical History Cerebrovascular Accident Yes: 05/2017 Dementia Yes Transient Ischemic Attacks ( Yes TIA) Dental Problems Yes: dentures, partial Dysphagia Yes Cardiac Arrhythmia Yes Hypertension Yes Pulmonary Embolism Yes: 05/2017 Gastrointestinal Bleeding Yes Hx Incontinence Yes Osteoarthritis Yes Shingles Yes Depression Yes Post Menopausal Yes Medical History Updates: Patient's home medications prior to [place] admission were: Donepezil 10 mg at at bedtime, sertraline 50 mg at at bedtime, amantadine 10 mg twice a day. New medications started during admission were: Clonidine 0.1 mg twice a day, amlodipine 10 mg daily, levetiracetam 5 mg twice a day, tamsulosin 0.4 mg daily, acetaminophen 500 mg every 6 hours when necessary, milk of mag when necessary, docusate 100 twice a day, and MiraLAX daily PRN. Surgical History: Cholecystectomy, appendectomy, bladder repair - Social History Smoking status: Never smoker Physical Exam - Limitations Limitations: no limitations - General General appearance: alert - Normal Exams: Head:: Normocephalic without trauma Eyes:: Pupils are PERRLA w/ EOMI, No scleral icterus, irritation, or foreign bodies noted Dental: No fractured, loose, or missing teeth noted Neck:: Full range of motion, without adenopathy, JVD, bruits or thyromegaly Chest/Respirations:: Clear all fermin, with good airflow, and symmetry bilaterally Cardiovascular:: Regular rate and rhythm, without murmur or gallop, Pulses 2+ all extremities, capillary refill, <2 seconds all extremities Abdomen:: Bowel sounds positive, soft, non-tender, non-distended, no hepatosplenomegaly, masses or bruits noted Lymphatic:: No lymphadenopathy, or lymphedema noted Integumentary:: No rashes, hives, or bruising noted, hair and nails, without abnormality Neurological:: Patient is alert, and oriented, cranial nerves, motor/sensory/ cerebellar, exams w/o gross deficits, to observation Psychiatric:: Patient exhibits, appropriate attention, emotion and affect - Extremities Exam Extremities exam: Present: other (patient has significant tenderness over the left lateral hip, with any palpation rotation or flexion of the hip. Range of motion is significantly limited. No palpable deformity) Course Vital Signs Temperature 97.6 F 10/08/17 00:10 Pulse Rate 83 10/08/17 00:10 Respiratory Rate 16 10/08/17 00:10 Blood Pressure 145/65 H 10/08/17 00:10 Pulse Oximetry 96 10/08/17 00:10 Temperature 97.6 F 10/08/17 00:10 Pulse Rate 83 10/08/17 00:10 Respiratory Rate 16 10/08/17 00:10 Blood Pressure 145/65 H 10/08/17 00:10 Pulse Oximetry 96 10/08/17 00:10 Extremity Injury, Lower - MDM Narrative Medical decision making narrative: Patient received fentanyl in route, currently declines any pain medication in addition to this. Patient is instructed that if she has any increased pain that she may receive pain medication at any time that she would like. Left hip films - left femoral neck fracture, impacted CBC, CMP, and preop chest ordered only abnormalities are mild elevation in BUN and creatinine above the patient's baseline. Case is discussed with Dr. Logan Sierra, will admit and ortho consult for repair in the morning - Lab Data Result diagrams: 10/08/17 00:35 10/08/17 00:35 Lab Results 10/08/17 10/08/17 Range/Units 00:35 00:35 WBC 6.7 (4.5-11.0) T/MM3 RBC 4.95 (4.00-5.20) M/MM3 Hgb 13.7 (12-16) GM/DL Hct 43.8 (36-46) % MCV 88.5 (80-100) UM3 MCH 27.7 (26-34) UUG MCHC 31.3 (31-37) GM/DL RDW Std Deviation 53.4 H (36.9-50.2) FL Plt Count 554 H (130-400) T/MM3 MPV 10.8 (9.4-12.4) UM3 Immature Gran % (Auto) 0.6 H (0.0-0.5) % Neut % (Auto) 65.9 (33-66) % Lymph % (Auto) 14.1 L (23-45) % Barnes % (Auto) 11.5 H (0-9.0) % Eos % (Auto) 7.0 H (0-4) % Baso % (Auto) 0.9 (0-2) % Neut # (Auto) 4.4 (1.8-7.7) T/MM3 Lymph # (Auto) 0.9 L (1-4.8) T/MM3 Barnes # (Auto) 0.8 (0-0.8) T/MM3 Eos # (Auto) 0.5 (0-0.5) T/MM3 Baso # (Auto) 0.1 (0-0.2) T/MM3 Abs Immat Gran (auto) 0.04 H (0.00-0.03) T/MM3 Turbidity < 20 (0-20) Sodium 143 (134-144) MEQ/L Potassium 4.7 (3.6-5) MEQ/L Chloride 102 (98-107) MEQ/L Carbon Dioxide 27 (22-30) MEQ/L Anion Gap 14 (5-15) MEQ/L Creatinine 1.9 H (0.7-1.2) MG/DL GFR Calculation 25 BUN/Creatinine Ratio 29 H (6-26) RATIO Glucose 135 H (65-110) MG/DL Calculated Osmolality 292 H (261-280) MOSM/KG Calcium 9.3 (8.4-10.2) MG/DL Icterus Index < 2 (0-7) Specimen Hemolysis < 15 (0-25) Disposition Clinical Impression: Fracture of femoral neck, left Qualifiers: Encounter type: initial encounter Fracture type: closed Qualified Code(s): S72.002A - Fracture of unspecified part of neck of left femur, initial encounter for closed fracture [place]: [place] [facility] [place] Condition: Improved Prescriptions: No Action Donepezil HCl [Aricept] 10 mg PO HS CloNIDine [Catapres] 0.1 mg PO BID tab Tamsulosin [Flomax] 0.4 mg PO HS cap LORazepam [Ativan] 0.5 mg PO Q8H PRN PRN Reason: Anxiety Guaifenesin/Dextromethorphan [Guaifenesin Dm Syrup] 5 ml PO Q4-6HPRN Docusate Sodium [Colace] 100 mg PO BID PRN PRN Reason: Constipation Acetaminophen [Pain Relief] 500 mg PO Q4HPRN Divalproex [Depakote] 250 mg PO BID Melatonin 6 mg PO HS Sertraline [Zoloft] 50 mg PO DAILY Cholecalciferol [Vit. D-3] 1,000 unit PO DAILY Furosemide [Lasix] 20 mg PO BID Lisinopril [Prinivil] 10 mg PO DAILY Mirtazapine [Remeron] 15 mg PO HS Memantine HCl 10 mg PO BID Acetaminophen [Tylenol] 650 mg PO TID PEG 3350 17gm PACKET [Miralax] 17 gm PO DAILY packet Levothyroxine Tab [Synthroid] 25 mcg PO ACB Tensoshapes 2 applicatio TOP BID Levetiracetam [Keppra] 250 mg PO HS Referrals: Jovana Ramirez MD [Family Provider] - - Seen By: physician
[2017-10-08] MEDS ORDERED: ONDANSETRON 4 MG/2 ML INJECTION IVP PRN (02:21)
[2017-10-08] MEDS ORDERED: LR 1,000 ML IV SCH (02:21)
[2017-10-08] MEDS ORDERED: HALOPERIDOL 5 MG/ML INJECTION IVP PRN (02:34)
--- NOTE | 2017-10-08 02:39 | History & Physical Report ---
History of Present Illness Date: 10/08/17 Chief complaint: hip pain HPI: patient seen via telemedicine with nursing assistance Ms. Lemos is an 82yo woman with h/o dementia, 05/2017 ICH with skilled placement since. No recent medication changes and daughter assists with history. Fall 4 hours ago with pain and inability to ambulate with L fem neck fx by Xray. No pain recognized by the patient who is a very poor historian. Last UTI 3 months ago and gets aggressive when present. DNR. Review of Systems All systems PM: 10-point ROS was reviewed, no additional remarkable complaints except Past Medical History Medical History Updates: Patient's home medications prior to [place] admission were: Donepezil 10 mg at at bedtime, sertraline 50 mg at at bedtime, amantadine 10 mg twice a day. New medications started during admission were: Clonidine 0.1 mg twice a day, amlodipine 10 mg daily, levetiracetam 5 mg twice a day, tamsulosin 0.4 mg daily, acetaminophen 500 mg every 6 hours when necessary, milk of mag when necessary, docusate 100 twice a day, and MiraLAX daily PRN. Surgical History: Cholecystectomy, appendectomy, bladder repair Family History Updates: sister cancer and pacemaker. no early CAD. - Social History Smoking status: Never smoker Medications Home Medications Medication Instructions Recorded Confirmed Type Acetaminophen [Tylenol] 650 mg PO TID 06/12/17 10/08/17 History Donepezil HCl [Aricept] 10 mg PO HS 06/12/17 10/08/17 History Memantine HCl 10 mg PO BID 06/12/17 10/08/17 History Acetaminophen [Pain Relief] 500 mg PO Q4HPRN 09/11/17 10/08/17 History Cholecalciferol [Vit. D-3] 1,000 unit PO DAILY 09/11/17 10/08/17 History Divalproex [Depakote] 250 mg PO BID 09/11/17 10/08/17 History Docusate Sodium [Colace] 100 mg PO BID PRN 09/11/17 10/08/17 History Furosemide [Lasix] 20 mg PO BID 09/11/17 10/08/17 History Guaifenesin/Dextromethorphan 5 ml PO Q4-6HPRN 09/11/17 10/08/17 History [Guaifenesin Dm Syrup] LORazepam [Ativan] 0.5 mg PO Q8H PRN 09/11/17 10/08/17 History Levothyroxine Tab [Synthroid] 25 mcg PO ACB 09/11/17 10/08/17 History Lisinopril [Prinivil] 10 mg PO DAILY 09/11/17 10/08/17 History Melatonin 6 mg PO HS 09/11/17 10/08/17 History Mirtazapine [Remeron] 15 mg PO HS 09/11/17 10/08/17 History Sertraline [Zoloft] 50 mg PO DAILY 09/11/17 10/08/17 History Tensoshapes 2 applicatio TOP BID 09/11/17 10/08/17 History Levetiracetam [Keppra] 250 mg PO HS 10/08/17 10/08/17 History Allergies Allergy/AdvReac Type Severity Reaction Status Date / Time No Known Allergies Allergy Verified 09/11/17 19:27 Exam Vital Signs: Temperature 97.6 F 10/08/17 00:10 Pulse Rate 84 10/08/17 01:30 Respiratory Rate 16 10/08/17 01:30 Blood Pressure 127/58 10/08/17 01:30 Pulse Oximetry 93 10/08/17 01:30 Telemetry Rhythm: Sinus Rhythm Comments: minimally verbal, tired and won't make eye contact. - Constitutional Present: no acute distress - Routine HEENT Exam Head: Present: normocephalic Eye: Present: EOMI - Routine Respiratory Exam Present: CTA bilaterally. Absent: accessory muscle use Comments: anterior exam - Routine Cardiovascular Exam Present: RRR, S1, S2 - Routine Abdominal Exam Present: soft, normoactive bowel sounds - Routine Extremities Exam Absent: cyanosis, clubbing, edema - Routine Skin Exam Present: intact - Routine Neurological Exam oriented to self only, no lateralizing signs Results - Labs CBC & Chem 7: 10/08/17 00:35 10/08/17 06:11 Assessment and Plan (1) Fracture of femoral neck, left Current visit: Yes Status: Acute (2) CKD (chronic kidney disease) stage 3, GFR 30-59 ml/min Current visit: Yes Status: Acute (3) HTN (hypertension) Current visit: Yes Status: Acute (4) Dementia Current visit: No Status: Chronic Assessment and Plan: 1. Nonsyncopal fall with acute L femoral neck fx--inpatient admit with NPO, bedrest, ortho consult, pain meds, vit D level check. 2. Dementia with behavioral disturbance. Will want to restart meds once after surgery. 3. Essential HTN hx. 4. 04/2017 ICH/SDH 5. CKD3? Recheck. 6. Stress hyperglycemia. DNR DVT Prophylaxis: SCD's Resuscitation Status: Do Not Resuscitate - Physician Narrative Physician: Holly Mitchell MD Narrative: Date: 10/08/17 Time: 11:[address] Mitchell I've seen and examined the patient. I've reviewed the H&P above by Dr. Sierra and agree. Please see my additions below. Chief complaint: Fall with left hip fracture History of present illness: The patient is an 82-year-old [facility] patient with dementia. She is not able to give any recent history because of her dementia and recent pain medication for hip fracture. She has history of falls with a subdural hematoma and intracranial hemorrhage last fall. She was admitted here or swing bed status and PT and OT after hospitalization in [place] for her brain bleeds. She subsequently went to the [facility]. Her daughter states she has fallen about 5 times since then including over the weekend where she sustained a left hip fracture. She did have a urinary tract infection a couple of months ago associated with agitation and irritability. She has otherwise been her normal self. She has not had any recent infections. No recent fevers, chills or sweats. She has not been eating as well since a medication to stimulate appetite has been discontinued. 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) Dementia History of GI bleed with perforated ulcer (2014) Depression Atrial arrhythmia (not atrial fibrillation) Chronic right hip pain secondary to osteoarthritis UTI causing increased agitation and confusion Past surgical history Cholecystectomy, appendectomy, bladder repair, IVC filter placement Social history, family history Reviewed and unchanged Medications and allergies reviewed and agree -Med list has been updated and includes Tamulosin 0.4 mg by mouth daily at bedtime and clonidine 0.1 mg by mouth twice a day Comprehensive review of systems Unable to obtain secondary to the patient's dementia Physical exam The patient is alert and in no acute distress. Systolic blood pressure is 144. Heart rate 101. O2 sat 90% on room air. She is afebrile. HEENT reveals sclerae to be anicteric, pupils are equal, oropharynx is dry. Neck is supple. Chest is clear to auscultation. Cardiovascular reveals a borderline tachycardic rate with irregular rhythm. Abdomen is soft with positive bowel sounds, nontender. Extremities reveal trace nonpitting edema. Skin is warm and dry and without rashes. Repeat lab today reveals sodium 143, potassium 5.5, chloride 101, CO2 30, BUN 52 , creatinine 1.7, glucose 1:30. Specimen is hemolyzed. INR is 1.17. UA shows 2+ occult blood, 3+ leukocyte esterase, 5-10 red cells, too numerous to count white cells, +1 bacteria. Urine culture is pending EKG reveals a tachycardia with rate of 101. Possible left atrial enlargement. No ST-T wave changes. Chest x-ray feels chronic senescent interstitial changes. Density in the left perihilar region may reflect summation of ribs and bronchovascular hilar structures versus a benign calcified nodule. I have viewed the chest x-ray and agree. Bilateral hip x-rays reveal acute slightly impacted left femoral neck fracture deformity. 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 Generalized osteopenia suggested. Impression Left femoral neck fracture Chronic kidney disease-versus mild dehydration Hypertension Dementia Hyperkalemia-likely secondary to hemolyzed specimen Borderline tachycardia Urinary tract infection Frequent falls Abnormal chest x-ray with possible nodule in the left lung Plan Recheck potassium Change IV fluids to normal saline Joaquin catheter was placed Rocephin for UTI Okay to proceed with surgery if recheck potassium is okay. Discussed with Mj Larios orthopedic PA Recheck CBC and basic metabolic profile in the morning Because of frequent falls, the patient is likely a poor candidate for anticoagulation post hip fracture repair. Fortunately, she does have an IVC filter in place. Discussed with family, they are wary to place on anticoagulation because of her history of intracranial hemorrhage, subdural hematoma and known history of GI bleed. Consider follow-up chest x-ray as outpatient Hospital Course Summary Disclaimer: The visit summary below is not to be considered part of the above Progress Note.
[2017-10-08] MEDS: MORPHINE SULFATE 4mg INJECTION IVP PRN ×2 (03:02→10:20)
[2017-10-08] MEDS ORDERED: FALL RISK - PHARMACY CONSULT XX ONE (05:36)
--- NOTE | 2017-10-08 06:58 | XRay Report ---
EXAM: XR hip BI 2V bilateral hips four total views. LOCATION OF DICTATION: [facility] HISTORY: fall, left hip pain with deformity COMPARISON: No prior studies available for comparison. FINDINGS: There is normal alignment of the bilateral hip joints. There is no dislocation subluxation. Generalized osteopenia suggested. There is acute slightly impacted left femoral neck fracture deformity suggested. There is mild to moderate osteoarthrosis of the bilateral hip joints. The visualized ilioischial and iliopectineal lines are intact. Surrounding soft tissues are normal. Impression: 1. Acute slightly impacted left femoral neck fracture deformity. 2. 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 3. Generalized osteopenia suggested. .
--- NOTE | 2017-10-08 07:00 | XRay Report ---
EXAM: XR chest 1V LOCATION OF DICTATION: [facility] HISTORY: preop COMPARISON: No prior studies available for comparison. FINDINGS: The heart size is normal. The mediastinal configuration is within normal limits. The lungs demonstrate chronic senescent interstitial changes. Nodular density overlying the left perihilar region may reflect summation artifact of ribs and hilar structures, or prominent calcified granuloma. There are no pleural effusions. There is no pneumothorax. The osseous structures are within normal limits for the patient's age. IMPRESSION: Chronic senescent interstitial changes. Density in the left perihilar region may reflect summation of ribs and bronchovascular hilar structures versus a benign calcified nodule. .
[2017-10-08] MEDS ORDERED: EPINEPHrine PF 0.25 MG, BUPIVACAINE 0.25% PF 30 ML, KETOROLAC INJ 60 MG in NS 30 ML OPSITE ONE (08:00)
--- NOTE | 2017-10-08 08:41 | Orthopedic Consult Note ---
Orthopedic Consultation HPI - Consultation Info Consult Date: 10/08/17 Attending Physician: Holly Mitchell MD Consult Reason: fracture - History of Present Illness Patient had an unwitnessed fall, she may have tried to get out of bed and fell onto her left hip. Patient was found on the ground with external rotation and shortening of the left leg, and significant pain and tenderness to the left hip. Patient was placed in a pelvic sling, given fentanyl in route for pain control. Xrays taken at [facility] show a displaced left femoral neck fracture. Review of Systems ROS unobtainable: due to dementia [facility] Patient Stated Medical History Cerebrovascular Accident Yes: 05/2017 Dementia Yes Transient Ischemic Attacks ( Yes TIA) Dental Problems Yes: dentures, partial Cardiac Arrhythmia Yes Hypertension Yes Pulmonary Embolism Yes: 05/2017 Gastrointestinal Bleeding Yes Ulcer Yes Hx Incontinence Yes Hx Urinary Tract Infection Yes Osteoarthritis Yes Shingles Yes Depression Yes Post Menopausal Yes Medical History Updates: Patient's home medications prior to [place] admission were: Donepezil 10 mg at at bedtime, sertraline 50 mg at at bedtime, amantadine 10 mg twice a day. New medications started during admission were: Clonidine 0.1 mg twice a day, amlodipine 10 mg daily, levetiracetam 5 mg twice a day, tamsulosin 0.4 mg daily, acetaminophen 500 mg every 6 hours when necessary, milk of mag when necessary, docusate 100 twice a day, and MiraLAX daily PRN. Surgical History: Cholecystectomy, appendectomy, bladder repair - Social History Smoking status: Never smoker Medications Home Medications Medication Instructions Recorded Confirmed Type Acetaminophen [Tylenol] 650 mg PO TID 06/12/17 10/08/17 History Donepezil HCl [Aricept] 10 mg PO HS 06/12/17 10/08/17 History Memantine HCl 10 mg PO BID 06/12/17 10/08/17 History Acetaminophen [Pain Relief] 500 mg PO Q4HPRN 09/11/17 10/08/17 History Cholecalciferol [Vit. D-3] 1,000 unit PO DAILY 09/11/17 10/08/17 History Divalproex [Depakote] 250 mg PO BID 09/11/17 10/08/17 History Docusate Sodium [Colace] 100 mg PO BID PRN 09/11/17 10/08/17 History Furosemide [Lasix] 20 mg PO BID 09/11/17 10/08/17 History Guaifenesin/Dextromethorphan 5 ml PO Q4-6HPRN 09/11/17 10/08/17 History [Guaifenesin Dm Syrup] LORazepam [Ativan] 0.5 mg PO Q8H PRN 09/11/17 10/08/17 History Levothyroxine Tab [Synthroid] 25 mcg PO ACB 09/11/17 10/08/17 History Lisinopril [Prinivil] 10 mg PO DAILY 09/11/17 10/08/17 History Melatonin 6 mg PO HS 09/11/17 10/08/17 History Mirtazapine [Remeron] 15 mg PO HS 09/11/17 10/08/17 History Sertraline [Zoloft] 50 mg PO DAILY 09/11/17 10/08/17 History Tensoshapes 2 applicatio TOP BID 09/11/17 10/08/17 History Levetiracetam [Keppra] 250 mg PO HS 10/08/17 10/08/17 History Allergies Allergy/AdvReac Type Severity Reaction Status Date / Time No Known Allergies Allergy Verified 09/11/17 19:27 Orthopedic Exam Vital signs: Temperature 97.1 F 10/08/17 08:06 Pulse Rate 106 H 10/08/17 08:06 Respiratory Rate 20 10/08/17 08:06 Blood Pressure 147/84 H 10/08/17 08:06 Pulse Oximetry 95 10/08/17 08:06 - Constitutional General Appearance: Present: alert, no acute distress (Unless she is moved.) - Respiratory Exam Present: non-labored - Cardiovascular Exam Present: pedal pulses intact Capillary Refill: < 2-3 Seconds - Extremities Exam Absent: cyanosis, clubbing, edema - Hip Exam left Hip Exam: Present: unequal leg length, tender over trochanter, abnormal rotation , painful PROM - Integumentary Exam Present: pink, warm, dry - Neurological Exam Present: no deficits - Psychiatric Exam Present: alert - Labs Result Diagrams: 10/08/17 00:35 10/08/17 06:11 Abnormal lab results 10/08/17 10/08/17 Range/Units 04:47 06:11 Potassium 5.5 H (3.6-5) MEQ/L BUN 52.0 H* (7-17) MG/DL Creatinine 1.7 H D (0.7-1.2) MG/DL BUN/Creatinine Ratio 31 H (6-26) RATIO Glucose 130 H (65-110) MG/DL Calculated Osmolality 291 H (261-280) MOSM/KG Specimen Hemolysis 53 H (0-25) Urine Protein 1+ A (NEGATIVE) Urine Occult Blood 2+ A (NEGATIVE) Ur Leukocyte Esterase 3+ A (NEGATIVE) Urine RBC 5-10 H (0-3) /HPF Urine WBC Tntc H (0-5) /HPF Urine Bacteria 1+ H (NEGATIVE) Coagulation 10/08/17 Range/Units 06:11 INR 1.17 (0.99-1.21) Impression and Recommendation (1) Fracture of femoral neck, left Current visit: Yes Qualifiers: Qualified Code(s): S72.002A - Fracture of unspecified part of neck of left femur, initial encounter for closed fracture Status: Acute Dr Morgan will meet with family today to discuss the surgical procedure. Risk vs benefits and possible complications reviewed. Plan left hip endoprosthesis later today if medically cleared. Will need to recheck K+ as this was a hemolyzed sample. Hospital Course Summary Disclaimer: The visit summary below is not to be considered part of the above Progress Note.
[2017-10-08] MEDS: NS 1,000 ML IV SCH ×2 (08:56→19:30)
--- NOTE | 2017-10-08 09:17 | Anesthesia Preoperative Report ---
Anesthesia Preoperative Record - Date and Time Date: 10/08/17 Preoperative Diagnosis: L femoral neck fracture Proposed Procedure: TFN Left NPO Since Date: 10/07/17 NPO Since Time: 20:00 Allergies/Adverse Reactions: Allergies Allergy/AdvReac Type Severity Reaction Status Date / Time No Known Allergies Allergy Verified 09/11/17 19:27 - Vital Signs Vital Signs: Temperature 97.1 F 10/08/17 08:06 Pulse Rate 106 H 10/08/17 08:06 Respiratory Rate 20 10/08/17 08:06 Blood Pressure 147/84 H 10/08/17 08:06 Pulse Oximetry 95 10/08/17 08:06 Height and Weight: Height 5 ft 5 in Weight 59.6 kg Body Mass Index 22.4 - Medications Inpatient Medications: Current Medications Haloperidol Lactate (Haldol) 2 mg IVP Q4H PRN Sodium Chloride (Normal Saline) 1,000 mls @ 100 mls/hr IV .Q10H MANDA Last Admin: 10/08/17 08:56 Dose: 100 mls/hr Ceftriaxone Sodium 1 g/ Sodium (Chloride) 50 mls @ 100 mls/hr IV Q24H [facility]DA Lorazepam (Ativan Inj) 0.5 mg IVP Q4H PRN Morphine Sulfate (Morphine Sulfate Inj) 2 mg IVP Q2H PRN PRN Reason: Pain Last Admin: 10/08/17 03:02 Dose: 2 mg Ondansetron HCl (Zofran) 4 mg IVP Q6H PRN PRN Reason: Nausea &/or vomiting Last Admin: 10/08/17 03:18 Dose: 4 mg Sodium Chloride (Iv Flush) 10 - 80 ml IVF PRN PRN PRN Reason: Flushing Home Medications: Home Medications Medication Instructions Recorded Confirmed Type Acetaminophen [Tylenol] 650 mg PO TID 06/12/17 10/08/17 History Donepezil HCl [Aricept] 10 mg PO HS 06/12/17 10/08/17 History Memantine HCl 10 mg PO BID 06/12/17 10/08/17 History Acetaminophen [Pain Relief] 500 mg PO Q4HPRN 09/11/17 10/08/17 History Cholecalciferol [Vit. D-3] 1,000 unit PO DAILY 09/11/17 10/08/17 History Divalproex [Depakote] 250 mg PO BID 09/11/17 10/08/17 History Docusate Sodium [Colace] 100 mg PO BID PRN 09/11/17 10/08/17 History Furosemide [Lasix] 20 mg PO BID 09/11/17 10/08/17 History Guaifenesin/Dextromethorphan 5 ml PO Q4-6HPRN 09/11/17 10/08/17 History [Guaifenesin Dm Syrup] LORazepam [Ativan] 0.5 mg PO Q8H PRN 09/11/17 10/08/17 History Levothyroxine Tab [Synthroid] 25 mcg PO ACB 09/11/17 10/08/17 History Lisinopril [Prinivil] 10 mg PO DAILY 09/11/17 10/08/17 History Melatonin 6 mg PO HS 09/11/17 10/08/17 History Mirtazapine [Remeron] 15 mg PO HS 09/11/17 10/08/17 History Sertraline [Zoloft] 50 mg PO DAILY 09/11/17 10/08/17 History Tensoshapes 2 applicatio TOP BID 09/11/17 10/08/17 History Levetiracetam [Keppra] 250 mg PO HS 10/08/17 10/08/17 History Is Patient on Beta Tamara?: No - Medical History Respiratory: Reports: Pulmonary Embolism (05/2017, has austyn filter) DENIES: Asthma, Bronchitis, Chronic Obstructive Pulmonary Disease (COPD), Dyspnea, Orthopnea, Pneumonia, Upper Respiratory Infection, Pulmonary Edema, Sleep Apnea, Tuberculosis, Other Cardiovascular: Reports: Arrhythmia (irregular at times), Hypertension DENIES: Abnormal EKG, Angina, Congestive Heart Failure, Coronary Artery Disease, Heart Murmur, Hypotension, High Cholesterol, Myocardial Infarction, Rheumatic Fever, Valvular Heart Disease, Other Gastrointestional: Reports: Gastrointestinal Bleeding, Ulcer DENIES: Obstructive Bowel, Hepatitis, Cirrhosis, Nausea or Vomiting Present, Gastroesophageal Reflux Disease, Hiatal Hernia, Morbid Obesity, Other Neuro/Musculoskeletal: Reports: HX.MS.OSAR, Cerebrovascular Accident (05/2017, brain bleed), Depression, Muscle Weakness Denies: Back Problems, Headaches, Loss of Consciousness, Neuromuscular Disorder, Paralysis, Paresthesia, Syncope, Seizures, Other Renal/Endocrine: Reports: Renal Failure, Thyroid Disease, Weight Loss DENIES: Diabetes Mellitus Type 1, Diabetes Mellitus Type 2, Dialysis, Weight Gain, Other - Surgical History GI Surgery/Treatments: Reports: Appendectomy, Cholecystectomy Surgery/Treatment: REPORT: Other (bladder repair) Anesthesia Reactions: Other (got "Hot" during surgery. Denies MH) Hx Family Anesthesia Reaction: No History of Motion Sickness: No - Social History Smoking Status: Never smoker Hx Chewing Tobacco Use: No Second Hand Exposure: No Substance Use Type: does not use Alcohol Intake: never Alcohol Intake Frequency: does not drink - Pertinent Findings Laboratory: CBC and BMP 10/08/17 06:11 BMP 10/08/17 06:11 Sodium 143 Potassium 5.5 H Chloride 101 Carbon Dioxide 30 BUN 52.0 H* Creatinine 1.7 H D Glucose 130 H Calcium 9.6 Urine 10/08/17 Range/Units 04:47 Urine Color Yellow (YELLOW) Urine Clarity Cloudy Urine pH 6.0 (5.0-8.0) Ur Specific [place] 1.015 (1.015-1.025) Urine Protein 1+ A (NEGATIVE) Urine Glucose (UA) Negative (NEGATIVE) EKG: Sinus Rhythm - Physical Exam Respiratory Exam: Present: lungs clear, bilateral breath sounds equal Cardiovascular Exam: Present: regular rate and rhythm, no murmur - Airway Assessment TMD: 3 Fingerbreadths Neck Extension: fair - ASA ASA Score: 3 - Plan Anesthesia: General TIVA - Discussion Discussion: Discussed risks/options/alternatives of anesthesia and questions answered. Patient consents. Nursing pain assessment noted. Present for Discussion: family member Attestation Statement: Prior to the delivery of any anesthetic medication, I examined the patient, developed the plan, obtained the patient's consent and discussed the risk and benefits of the procedure with the patient/guardian. - Additional Information Seen by Anesthesia: Yes
[2017-10-08] MEDS: CEFTRIAXONE 1 G in NS 50 ML IV SCH (10:14)
[2017-10-08] MEDS ORDERED: DOCUSATE SODIUM 100 MG CAPSULE PO PRN (10:53)
[2017-10-08] MEDS ORDERED: LORazepam 0.5 MG TABLET PO PRN (10:53)
[2017-10-08] MEDS ORDERED: TRANEXAMIC ACID 1,000 MG/10 ML VIAL TOP ONE (11:16)
--- NOTE | 2017-10-08 16:57 | Progress Note ---
Progress Note: I was called by the nurse this afternoon and notified that the patient seemed a little different. Vitals show she is afebrile. Blood pressure is 160/85. Heart rate is 103. O2 sat was 89% and she was placed on 2L. On my arrival the patient is awake but somnolent. No family is currently present. She feels warm but is afebrile. Chest is clear to auscultation. Cardiovascular reveals a regular rate and rhythm. There is no facial asymmetry. She will not answer very many questions. She will not follow all of my commands to check cranial nerves but no facial asymmetry is appreciated. Motor strength is good in the upper extremities. She will wiggle her right leg on command but not the left, likely secondary to pain. She does appear to have some encephalopathy and fatigue which may be secondary to pain medications, poor sleep last night, and acute UTI. The patient was not awake enough to take her medicines orally earlier today. Vital signs are currently okay. Continue to monitor closely. Continue on IV fluids. Urine output has been good. Follow-up basic metabolic profile is pending.
[2017-10-08] MEDS ORDERED: MORPHINE SULFATE 2mg INJECTION IVP PRN (17:15)
[2017-10-08] MEDS: ACETAMINOPHEN 325 MG TABLET PO SCH (22:32)
[2017-10-08] MEDS: MELATONIN 1 MG TABLET PO SCH (22:34)
[2017-10-08] MEDS: MELATONIN 5 MG TABLET PO SCH (22:34)
[2017-10-08] MEDS: TAMSULOSIN 0.4 MG CAPSULE PO SCH (22:35)
[2017-10-08] MEDS: DIVALPROEX 250 MG TABLET PO SCH (22:39)
[2017-10-08] MEDS: DONEPEZIL 10 MG TABLET PO SCH (22:40)
[2017-10-08] MEDS: MEMANTINE 10 MG TABLET PO SCH (22:40)
[2017-10-08] MEDS: MIRTAZAPINE 15 MG TABLET PO SCH (22:40)
[2017-10-09] MEDS: LEVOTHYROXINE 25 MCG TABLET PO SCH (05:37)
[2017-10-09] MEDS: NOZIN NASAL SWAB NAS SCH ×5 (06:08→17:36)
[2017-10-09] MEDS: NS 1,000 ML IV SCH ×4 (06:16→14:24)
[2017-10-09] MEDS ORDERED: CEFAZOLIN 1 G INJECTION IVP ONE (06:30)
[2017-10-09] MEDS ORDERED: VANCOMYCIN 1,000 MG INJECTION ONE (06:45)
[2017-10-09] MEDS ORDERED: PNEUMOCOCCAL VAC ADMIN CHARGE INJ ONE (06:54)
[2017-10-09] MEDS ORDERED: VANCOMYCIN 1,000 MG INJECTION IAR ONE (06:58)
[2017-10-09] MEDS ORDERED: ROCURONIUM 50 MG/5 ML INJECTION IVP ONE (07:05)
[2017-10-09] MEDS ORDERED: PROPOFOL 20 ML ONE (07:05)
--- NOTE | 2017-10-09 07:08 | Anesthesia Preoperative Report ---
Anesthesia Preoperative Record - Date and Time Date: 10/09/17 Preoperative Diagnosis: L femoral neck fracture Proposed Procedure: Left Hip Endoprosthesis Hip NPO Since Date: 10/09/17 NPO Since Time: 00:00 Allergies/Adverse Reactions: Allergies Allergy/AdvReac Type Severity Reaction Status Date / Time No Known Allergies Allergy Verified 09/11/17 19:27 - Vital Signs Vital Signs: Temperature 98.8 F 10/09/17 06:13 Pulse Rate 101 H 10/09/17 06:13 Respiratory Rate 22 10/09/17 06:13 Blood Pressure 163/74 H 10/09/17 06:13 Pulse Oximetry 92 10/09/17 06:13 Height and Weight: Height 1.65 m Weight 59.6 kg Body Mass Index 22.4 - Medications Inpatient Medications: Current Medications Acetaminophen (Tylenol) 650 mg PO TID [facility] Last Admin: 10/08/17 22:32 Dose: Not Given Cholecalciferol (Vit. D-3) 1,000 unit PO DAILY [facility] Clonidine HCl (Catapres) 0.1 mg PO BID [facility] Last Admin: 10/08/17 22:32 Dose: Not Given Divalproex Sodium (Depakote) 250 mg PO BID [facility] Last Admin: 10/08/17 22:39 Dose: 250 mg Docusate Sodium (Colace) 100 mg PO BID PRN PRN Reason: Constipation Donepezil HCl (Aricept) 10 mg PO HS [facility] Last Admin: 10/08/17 22:40 Dose: 10 mg Haloperidol Lactate (Haldol) 2 mg IVP Q4H PRN Sodium Chloride (Normal Saline) 1,000 mls @ 100 mls/hr IV .Q10H [facility] Last Admin: 10/08/17 19:30 Dose: 100 mls/hr Ceftriaxone Sodium 1 g/ Sodium (Chloride) 50 mls @ 100 mls/hr IV Q24H [facility] Last Infusion: 10/08/17 10:44 Dose: Infused Sodium Chloride (Normal Saline) 1,000 mls @ 50 mls/hr IV .Q20H [facility] Last Admin: 10/09/17 06:16 Dose: 50 mls/hr Levothyroxine Sodium (Synthroid) 25 mcg PO ACB [facility] Last Admin: 10/09/17 05:37 Dose: Not Given Lorazepam (Ativan Inj) 0.5 mg IVP Q8H PRN Melatonin (Melatonin) 5 mg PO HS [facility] Last Admin: 10/08/17 22:34 Dose: Not Given Melatonin (Melatonin) 1 mg PO [facility] Last Admin: 10/08/17 22:34 Dose: Not Given Memantine (Namenda) 10 mg PO BID [facility] Last Admin: 10/08/17 22:40 Dose: 10 mg Mirtazapine (Remeron) 15 mg PO HS [facility] Last Admin: 10/08/17 22:40 Dose: 15 mg Morphine Sulfate (Morphine Sulfate Inj) 2 mg IVP Q2H PRN PRN Reason: Pain Ondansetron HCl (Zofran) 4 mg IVP Q6H PRN PRN Reason: Nausea &/or vomiting Last Admin: 10/08/17 03:18 Dose: 4 mg Polyethylene Glycol (Miralax) 17 gm PO DAILY [facility] Sertraline HCl (Zoloft) 50 mg PO DAILY [facility] Sodium Chloride (Iv Flush) 10 - 80 ml IVF PRN PRN PRN Reason: Flushing Tamsulosin HCl (Flomax) 0.4 mg PO [facility] Last Admin: 10/08/17 22:35 Dose: Not Given Home Medications: Home Medications Medication Instructions Recorded Confirmed Type Acetaminophen [Tylenol] 650 mg PO TID 06/12/17 10/08/17 History Donepezil HCl [Aricept] 10 mg PO HS 06/12/17 10/08/17 History Memantine HCl 10 mg PO BID 06/12/17 10/08/17 History Acetaminophen [Pain Relief] 500 mg PO Q4HPRN 09/11/17 10/08/17 History Cholecalciferol [Vit. D-3] 1,000 unit PO DAILY 09/11/17 10/08/17 History Divalproex [Depakote] 250 mg PO BID 09/11/17 10/08/17 History Docusate Sodium [Colace] 100 mg PO BID PRN 09/11/17 10/08/17 History Furosemide [Lasix] 20 mg PO BID 09/11/17 10/08/17 History Guaifenesin/Dextromethorphan 5 ml PO Q4-6HPRN 09/11/17 10/08/17 History [Guaifenesin Dm Syrup] LORazepam [Ativan] 0.5 mg PO Q8H PRN 09/11/17 10/08/17 History Levothyroxine Tab [Synthroid] 25 mcg PO ACB 09/11/17 10/08/17 History Lisinopril [Prinivil] 10 mg PO DAILY 09/11/17 10/08/17 History Melatonin 6 mg PO HS 09/11/17 10/08/17 History Mirtazapine [Remeron] 15 mg PO HS 09/11/17 10/08/17 History Sertraline [Zoloft] 50 mg PO DAILY 09/11/17 10/08/17 History Tensoshapes 2 applicatio TOP BID 09/11/17 10/08/17 History Levetiracetam [Keppra] 250 mg PO HS 10/08/17 10/08/17 History Is Patient on Beta Tamara?: No - Medical History Respiratory: Reports: Pulmonary Embolism (05/2017, has austyn filter) DENIES: Asthma, Bronchitis, Chronic Obstructive Pulmonary Disease (COPD), Dyspnea, Orthopnea, Pneumonia, Upper Respiratory Infection, Pulmonary Edema, Sleep Apnea, Tuberculosis, Other Cardiovascular: Reports: Arrhythmia (irregular at times), Hypertension DENIES: Abnormal EKG, Angina, Congestive Heart Failure, Coronary Artery Disease, Heart Murmur, Hypotension, High Cholesterol, Myocardial Infarction, Rheumatic Fever, Valvular Heart Disease, Other Gastrointestional: Reports: Gastrointestinal Bleeding, Ulcer DENIES: Obstructive Bowel, Hepatitis, Cirrhosis, Nausea or Vomiting Present, Gastroesophageal Reflux Disease, Hiatal Hernia, Morbid Obesity, Other Neuro/Musculoskeletal: Reports: HX.MS.OSAR, Cerebrovascular Accident (05/2017, brain bleed), Depression, Muscle Weakness Denies: Back Problems, Headaches, Loss of Consciousness, Neuromuscular Disorder, Paralysis, Paresthesia, Syncope, Seizures, Other Renal/Endocrine: Reports: Renal Failure, Thyroid Disease, Weight Loss DENIES: Diabetes Mellitus Type 1, Diabetes Mellitus Type 2, Dialysis, Weight Gain, Other - Surgical History GI Surgery/Treatments: Reports: Appendectomy, Cholecystectomy Surgery/Treatment: REPORT: Other (bladder repair) DENIES: Dialysis Reproductive Surgery/Treatment: Reports: Hysterectomy Anesthesia Reactions: Other (got "Hot" during surgery. Denies ) Hx Family Anesthesia Reaction: No History of Motion Sickness: No - Social History Smoking Status: Never smoker Hx Chewing Tobacco Use: No Second Hand Exposure: No Substance Use Type: does not use Alcohol Intake: never Alcohol Intake Frequency: does not drink - Pertinent Findings Laboratory: CBC and BMP 10/09/17 04:22 10/09/17 04:22 BMP 10/08/17 10/08/17 10/08/17 06:11 11:29 16:48 Sodium 143 142 Potassium 5.5 H 5.5 H 5.1 H Chloride 101 105 Carbon Dioxide 30 28 BUN 52.0 H* 41.0 H Creatinine 1.7 H D 1.6 H Glucose 130 H 121 H Calcium 9.6 9.3 10/09/17 04:22 Sodium 144 Potassium 5.0 Chloride 106 Carbon Dioxide 28 BUN 36.0 H Creatinine 1.3 H D Glucose 121 H Calcium 9.5 Liver Function 10/09/17 Range/Units 04:22 Albumin 3.8 (3.5-5.0) G/DL EKG: Sinus Tachycardia - Physical Exam Respiratory Exam: Present: lungs clear, rales (on the Right more than left), bilateral breath sounds equal Cardiovascular Exam: Present: regular rate and rhythm, no murmur - Airway Assessment Mallampati Score: II TMD: 3 Fingerbreadths, 4 Fingerbreadths Neck Extension: fair Teeth: upper dentures, partial lower dentures Overall Assessment: no airway concerns - ASA ASA Score: 3, E - Plan Anesthesia: General TIVA - Discussion Discussion: Discussed risks/options/alternatives of anesthesia and questions answered. Patient consents. Nursing pain assessment noted. Present for Discussion: family member Attestation Statement: Prior to the delivery of any anesthetic medication, I examined the patient, developed the plan, obtained the patient's consent and discussed the risk and benefits of the procedure with the patient/guardian.
[2017-10-09] MEDS ORDERED: EPINEPHrine PF 0.25 MG, BUPIVACAINE 0.25% PF 30 ML in NS 30 ML OPSITE ONE (07:15)
[2017-10-09] MEDS ORDERED: FentaNYL 100 MCG/2 ML INJECTION ONE ×2 (07:30→07:51)
[2017-10-09] MEDS ORDERED: METOPROLOL 5mg/5ml INJECTION IVP ONE (07:33)
[2017-10-09] MEDS ORDERED: TRANEXAMIC ACID 1,000 MG in NS 100 ML TOP ONE (07:51)
[2017-10-09] MEDS ORDERED: SUGAMMADEX 200mg/2ml INJECTION IVP ONE (08:33)
[2017-10-09] MEDS ORDERED: FentaNYL 100 MCG/2 ML INJECTION IVP PRN (09:02)
[2017-10-09] MEDS ORDERED: NOZIN NASAL SWAB NAS ONE (09:24)
--- NOTE | 2017-10-09 09:33 | XRay Report ---
Indication: AP pelvis and cross table lateral left hip / Lt hip FHR. PROCEDURE: XR pelvis w/ 1 view LT hip: Encounter: Initial Comparison: October 08, 2017 Findings: Postoperative changes of left femoral head replacement are seen. There is expected postoperative subcutaneous gas. No evidence of hardware failure or acute fracture. No retained radiopaque surgical instruments or sponges seen. Impression: New left femoral head prosthesis without evidence of immediate complication. .
[2017-10-09] MEDS: CEFTRIAXONE 1 G in NS 50 ML IV SCH (09:54)
--- NOTE | 2017-10-09 09:59 | Anesthesia Postoperative Note ---
- Date and Time Date: 10/09/17 Time: 09:58 - Status Patient Participated in Evaluation: Patient Participated in Person Vital Signs: Temperature 97.3 F 10/09/17 09:33 Pulse Rate 94 10/09/17 09:33 Respiratory Rate 14 10/09/17 09:33 Blood Pressure 158/69 H 10/09/17 09:33 Pulse Oximetry 91 10/09/17 09:33 Respiratory Function: Airway Patent Cardiovascular Function: Regular Pulse EKG: Sinus Rhythm Mental Status: Alert and Oriented (return to pre op mental status) Pain Intensity: 0 Hydration: IV Infusing Complications During Recover: None Apparent - Follow-Up Instructions Instructions: Per Surgeon
[2017-10-09] MEDS ORDERED: PNEUMOCOCCAL 13 VACCINE 0.5ml INJECTION IM ONE (10:37)
[2017-10-09] MEDS: SERTRALINE 50 MG TABLET PO SCH (10:58)
[2017-10-09] MEDS: ASPIRIN 81 MG CHEWABLE TABLET PO SCH ×2 (10:59→20:29)
[2017-10-09] MEDS: MEMANTINE 10 MG TABLET PO SCH ×2 (10:59→20:23)
[2017-10-09] MEDS: DIVALPROEX 250 MG TABLET PO SCH ×2 (10:59→20:23)
[2017-10-09] MEDS: POLYETHYL GLYCOL 3350 17gm PACKET PO SCH (11:00)
[2017-10-09] MEDS: ACETAMINOPHEN 325 MG TABLET PO SCH ×4 (11:00→20:18)
--- NOTE | 2017-10-09 14:28 | Operative Note ---
DATE OF OPERATION 10/09/2017 PREOPERATIVE DIAGNOSIS Left displaced femoral neck fracture. POSTOPERATIVE DIAGNOSIS Left displaced femoral neck fracture. PROCEDURE Left hip hemiarthroplasty. SURGEON Aneudy Morgan MD CLEAT BLANKER Mj Larios PA-C COMPLICATIONS None ANESTHESIA General EBL AND FLUIDS Please see Anesthetic records. DESCRIPTION OF PROCEDURE Mrs. Lemos and her left hip were identified and marked in the preoperative holding area. She was brought back to the operating suite and placed supine on the operating table. She was placed under general anesthesia. She was then placed in the lateral decubitus position with her left side superior. She was prepped and draped in my normal sterile fashion. Time-out was performed. A posterior approach to the hip was utilized. Sharp dissection was carried down to the muscle fascia which was then split in line with the skin incision. A Charnley retractor was placed. Short external rotators were identified and detached. Capsulotomy was performed and fracture hematoma evacuated. A new femoral neck osteotomy was performed using a template. The neck fragment as well as the head were removed and the head was measured at the back table and we trialed a 49 head. This felt good. I then prepared the proximal femur with a Admitly cutter followed by reaming and then broaching to a size 5. We trialed with a size 5 with a 49 head with 132 degree neck. This gave good leg length and excellent stability. Trial components were then removed and the canal was prepared for cementing. A cement restrictor was placed. A C5 stem was then cemented into place and held in proper anteversion as the cement cured. TXA was used in the hip joint during the curing period for five minutes. As the cement had cured, I trialed again with a 49 head and again we were good on leg length and stability so after thorough irrigation, a final standard 49 mm cobalt chrome head was placed and the hip reduced. The capsulotomy was repaired with #1 Ethibond. The piriformis tendon was also repaired with #1 Ethibond. The muscle fascia was repaired with #1 Vicryl. I then left my assistant wrestling coach to close the subcutaneous tissue with 2-0 Vicryl followed by a running 4-0 Monocryl in the subcuticular layer followed by a sterile dressing. She was placed back into the supine position and taken to the recovery room under the care of Anesthesia. She tolerated the procedure well. There were no complications. YARI
[2017-10-09] MEDS: CEFAZOLIN 1 G in NS 100 ML IV SCH ×2 (15:58→23:16)
[2017-10-09 16:55] VITALS: BMI 23.5
--- NOTE | 2017-10-09 19:21 | Progress Note ---
- Date 10/09/17 Subjective: The patient was seen this morning after surgery. She was accompanied by her family. She was sleeping quietly but awoke easily. She denied any shortness of breath. She denied any chest pain or nausea. She denied any pain anywhere. She had good urine output perioperatively. Vital signs at been stable. Objective Vital signs: Temperature 98.5 F 10/09/17 15:38 Pulse Rate 103 H 10/09/17 17:39 Respiratory Rate 16 10/09/17 17:23 Blood Pressure 129/64 10/09/17 17:39 Pulse Oximetry 95 10/09/17 17:39 Height/Weight/BMI: Height 1.65 m Weight 64.2 kg Body Mass Index 23.5 Comments: Afebrile, heart rate 101, blood pressure preop 163/74 and by late morning was down into the 80s systolic after clonidine. O2 sat 92% on room air. GEN-drowsy but arousable, no acute distress HEENT-oropharynx is moist NECK-supple CV-regular rate and rhythm CHEST-clear to auscultation bilaterally ABD-soft, nontender with positive bowel sounds -Joaquin in place with good urine output EXT-no edema NEURO-focal deficits SKIN-warm and dry Results - Labs CBC & Chem 7: 10/09/17 04:22 10/09/17 04:22 Labs: Phosphorus 3.5, creatinine is 1.3 down from 1.9. BUN is 36 down from 55. Vitamin D level is pending Microbiology Results: Microbiology 10/08/17 04:47 Urine, Cath Joaquin Urine Culture - Preliminary Escherichia coli Corynebacterium species Assessment and Plan (1) Fracture of femoral neck, left Current visit: Yes Status: Acute (2) CKD (chronic kidney disease) stage 3, GFR 30-59 ml/min Current visit: Yes Status: Acute (3) HTN (hypertension) Current visit: Yes Status: Acute (4) Dementia Current visit: No Status: Chronic Assessment and Plan: Impression Fall with left femoral neck fracture-status post left hip hemiarthroplasty today. Hypotension postop after clonidine-resolved with IV fluid bolus Dementia-stable Mild encephalopathy Acute kidney injury-improving Chronic kidney disease UTI-sensitivities pending, currently on Rocephin Hyperkalemia-resolved Dehydration-continue IV fluids Questionable nodule on chest g-dpv-sgicon-up as outpatient Hypertension-hold clonidine if blood pressure is low this evening Plan Continue cautious IV fluids Continue Rocephin for UTI CBC and basic metabolic profile tomorrow Resuscitation Status: Do Not Resuscitate - Physician Narrative Narrative: Date: 10/09/17 Time: 1914 Hospital Course Summary Disclaimer: The visit summary below is not to be considered part of the above Progress Note.
[2017-10-09] MEDS: MIRTAZAPINE 15 MG TABLET PO SCH (20:23)
[2017-10-09] MEDS: DONEPEZIL 10 MG TABLET PO SCH (20:23)
[2017-10-09] MEDS: MELATONIN 5 MG TABLET PO SCH (20:29)
[2017-10-09] MEDS: MELATONIN 1 MG TABLET PO SCH (20:29)
[2017-10-09] MEDS: TAMSULOSIN 0.4 MG CAPSULE PO SCH (20:29)
[2017-10-10] MEDS: NOZIN NASAL SWAB NAS SCH ×4 (01:15→20:44)
[2017-10-10] MEDS: NS 1,000 ML IV SCH ×5 (01:15→15:29)
[2017-10-10] MEDS: HYDROCODONE/APAP 5mg/325mg TABLET PO PRN ×2 (03:43→09:11)
[2017-10-10] MEDS: LEVOTHYROXINE 25 MCG TABLET PO SCH (05:56)
[2017-10-10] MEDS: CEFTRIAXONE 1 G in NS 50 ML IV SCH (08:53)
[2017-10-10] MEDS: DIVALPROEX 250 MG TABLET PO SCH ×2 (08:58→10:24)
[2017-10-10] MEDS: ASPIRIN 81 MG CHEWABLE TABLET PO SCH ×2 (08:58→20:50)
[2017-10-10] MEDS: MEMANTINE 10 MG TABLET PO SCH ×2 (09:11→20:53)
[2017-10-10] MEDS: POLYETHYL GLYCOL 3350 17gm PACKET PO SCH (09:12)
[2017-10-10] MEDS: SERTRALINE 50 MG TABLET PO SCH (09:12)
[2017-10-10] MEDS: ACETAMINOPHEN 325 MG TABLET PO SCH ×4 (09:12→20:53)
--- NOTE | 2017-10-10 09:23 | Orthopedic Progress Note ---
Date: Date: 10/10/17 Time: 919 Subjective/Severity of Illness: Candido had a left hip mona arthroplasty on 10/09/[address]. She is doing okay this AM. Pulse and BP up slightly and AM meds are scheduled. Not too painful at rest. Pt is aware she broke her hip but is confused to the fact [place] [facility] [place] Objective PO Vital signs: Temperature 98.7 F 10/10/17 07:50 Pulse Rate 107 H 10/10/17 07:50 Respiratory Rate 18 10/10/17 07:50 Blood Pressure 160/61 H 10/10/17 07:50 Pulse Oximetry 93 10/10/17 07:50 Height and Weight: Height 5 ft 5 in Weight 136 lb 3.931 oz Body Mass Index 23.5 - Constitutional General Appearance: Present: alert, no acute distress - Respiratory Exam Present: non-labored - Cardiovascular Exam Present: pedal pulses intact - Surgical Site Incision: Mepilex dressing intact, no drainage - Integumentary Exam Present: pink, warm, dry - Neurological Exam Present: no deficits - Psychiatric Exam Present: alert - Labs Result Diagrams: 10/10/17 04:12 10/10/17 04:12 Abnormal lab results 10/10/17 10/10/17 Range/Units 04:12 04:12 WBC 11.3 H (4.5-11.0) T/MM3 RBC 3.99 L (4.00-5.20) M/MM3 Hgb 11.3 L D (12-16) GM/DL MCHC 30.4 L (31-37) GM/DL RDW Std Deviation 55.6 H (36.9-50.2) FL Plt Count 471 H (130-400) T/MM3 Neutrophils % (Manual) 82.0 H (33-66) % Lymphocytes % (Manual) 6.0 L (23-45) % Monocytes % (Manual) 10.0 H (0-9.0) % Neutrophils # (Manual) 9.3 H (1.8-7.7) T/MM3 Lymphocytes # (Manual) 0.7 L (1-4.8) T/MM3 Monocytes # (Manual) 1.1 H (0-0.8) T/MM3 Sodium 146 H (134-144) MEQ/L Chloride 112 H (98-107) MEQ/L BUN 25.0 H (7-17) MG/DL Glucose 116 H (65-110) MG/DL Calculated Osmolality 286 H (261-280) MOSM/KG H & H 10/09/17 10/10/17 Range/Units 04:22 04:12 Hgb 15.3 D 11.3 L D (12-16) GM/DL Hct 47.8 H 37.2 D (36-46) % Coagulation 10/08/17 Range/Units 06:11 INR 1.17 (0.99-1.21) Orthopedic Assessment and Plan (1) Fracture of femoral neck, left Status: Acute Qualifiers: Encounter type: initial encounter Fracture type: closed Qualified Code(s) : S72.002A - Fracture of unspecified part of neck of left femur, initial encounter for closed fracture Assessment and Plan: Aspirin protocol for VTE prophylaxis x 6 weeks. SCD's and early mobilization for added DVT coverage. PT/OT services to improve independent function. WBAT. Will need f/u with ortho 3weeks post op. Discharge Planning per Case Management. - Anticoagulation Therapy Anticoagulation: ASA 81 mg PO BID x6 weeks Hospital Course Summary Disclaimer: The visit summary below is not to be considered part of the above Progress Note.
[2017-10-10] MEDS: DIVALPROEX SPRINKLE 125 MG CAPSULE PO SCH ×2 (09:43→20:48)
--- NOTE | 2017-10-10 10:32 | Progress Note ---
- Date 10/10/17 Subjective: Candido is seen today in follow up. She is somewhat confused today however nursing reports this is not new. She is noted to be mildly tachycardic 105 however she is complaining of significant amount of hip pain currently. Currently breathing on room air without distress. She denies having chest pain or shortness of breath. Objective Vital signs: Temperature 98.7 F 10/10/17 07:50 Pulse Rate 107 H 10/10/17 07:50 Respiratory Rate 18 10/10/17 07:50 Blood Pressure 160/61 H 10/10/17 07:50 Pulse Oximetry 93 10/10/17 07:50 Height/Weight/BMI: Height 1.65 m Weight 61.8 kg Body Mass Index 23.5 - Constitutional Present: mild distress, well nourished, well developed - Routine HEENT Exam Eye: Present: EOMI ENT: Present: mucous membranes moist, dentition normal - Routine Respiratory Exam Present: CTA bilaterally. Absent: wheezes - Routine Cardiovascular Exam Present: RRR, S1, S2, tachycardia (105). Absent: murmur - Routine Abdominal Exam Present: soft, normoactive bowel sounds, non distended. Absent: tenderness - Routine Extremities Exam Present: pulses intact Comments: Left hip pain - Routine Skin Exam Present: intact, dry, warm - Routine Neurological Exam Present: alert, CN II-XII intact - Routine Lymphatic Exam Lymphatic: Absent: adenopathy - Routine Psychiatric Exam Present: cooperative, agitated Results - Labs CBC & Chem 7: 10/10/17 04:12 10/10/17 04:12 Microbiology Results: Microbiology 10/08/17 04:47 Urine, Cath Joaquin Urine Culture - Preliminary Escherichia coli Corynebacterium species Assessment and Plan (1) Dementia Current visit: No Status: Chronic (2) Fracture of femoral neck, left Current visit: Yes Status: Acute (3) CKD (chronic kidney disease) stage 3, GFR 30-59 ml/min Current visit: Yes Status: Acute (4) HTN (hypertension) Current visit: Yes Status: Acute Assessment and Plan: Impression Fall with left femoral neck fracture-status post left hip hemiarthroplasty today. Hypotension postop after clonidine-resolved with IV fluid bolus Dementia-stable Mild encephalopathy Acute kidney injury-improving Chronic kidney disease UTI-sensitivities pending, currently on Rocephin Hyperkalemia-resolved Dehydration-continue IV fluids Questionable nodule on chest [id number]-up as outpatient Hypertension-hold clonidine if blood pressure is low this evening Plan IV fluids decreased to 80 ml/hr. Monitor for fluid overload Continue Rocephin for UTI- sensitive Encouraged nursing to treat pain as this may cause tachycardia Encourage PO intake 6 weeks of ASA for post-op PPX PT/OT to encourage post-op strengthening Case discussed with attending, Dr Mitchell 10/10/2017-1:50 PM-I reviewed this chart, the patient history, and the ENAMEL CRACKER's/PA 's documented findings as above. We discussed and formulated the assessment and plan as above with the additions below.-Dr. Mitchell Patient was seen in her room. No family was present at the time. She was sitting up in a chair eating some lunch. She denied any pain. She denies shortness of breath. She denies any nausea or vomiting. She had eaten only a little bit of her lunch but had drank too mighty shakes. Late this morning the patient had hypotension with systolic blood pressure in the 80s. She was given a 250 cc normal saline bolus and blood pressure improved to 100 systolic. She is currently on room air On exam she is pleasantly confused and appears to be at baseline. Chest is clear to auscultation. Cardiovascular reveals a regular rate and rhythm with frequent ectopy. Abdomen is soft and nontender. Extremities are free of edema. SCDs are on. Sodium is 146, BUN 25, creatinine 1.1 which appears to be at baseline. Impression and plan The patient appears to be doing well postoperatively from her left femoral neck fracture repair. She has only mild acute blood loss anemia. Dehydration and acute kidney injury are improving. She has had hypotension 2 mornings in a row now that have resolved with fluid bolus. May need to hold clonidine. UTI shows Escherichia coli sensitive to Rocephin and Keflex. Change to Keflex tomorrow. Encourage by mouth fluids Change IV fluids to half-normal saline and run at 50 ML's per hour. DVT Prophylaxis: SCD's Resuscitation Status: Do Not Resuscitate - Physician Narrative Physician: Holly Mitchell MD Narrative: Date: 10/10/17 Time: 1020 Hospital Course Summary Disclaimer: The visit summary below is not to be considered part of the above Progress Note. Hospital Course: 10/10 IV fluids decreased to 80 ml/hr. Monitor for fluid overload Continue Rocephin for UTI- sensitive Encouraged nursing to treat pain as this may cause tachycardia Encourage PO intake 6 weeks of ASA for post-op PPX PT/OT to encourage post-op strengthening Case discussed with attending, Dr Mitchell
[2017-10-10] MEDS: 1/2 NS 1,000 ML IV SCH (14:52)
[2017-10-10] MEDS: MIRTAZAPINE 15 MG TABLET PO SCH (20:45)
[2017-10-10] MEDS: DONEPEZIL 10 MG TABLET PO SCH (20:45)
[2017-10-10] MEDS: TAMSULOSIN 0.4 MG CAPSULE PO SCH (20:49)
[2017-10-10] MEDS: MELATONIN 1 MG TABLET PO SCH (20:51)
[2017-10-10] MEDS: MELATONIN 5 MG TABLET PO SCH (20:51)
[2017-10-11] MEDS: NOZIN NASAL SWAB NAS SCH ×2 (02:39→08:56)
[2017-10-11] MEDS: LEVOTHYROXINE 25 MCG TABLET PO SCH (06:33)
[2017-10-11 07:45] VITALS: PULSE 99
[2017-10-11] MEDS: MEMANTINE 10 MG TABLET PO SCH (08:55)
[2017-10-11] MEDS: SERTRALINE 50 MG TABLET PO SCH (08:55)
[2017-10-11] MEDS: ACETAMINOPHEN 325 MG TABLET PO SCH (08:55)
[2017-10-11] MEDS: POLYETHYL GLYCOL 3350 17gm PACKET PO SCH (08:56)
[2017-10-11] MEDS: DIVALPROEX SPRINKLE 125 MG CAPSULE PO SCH (08:56)
[2017-10-11] MEDS: ASPIRIN 81 MG CHEWABLE TABLET PO SCH (08:56)
--- NOTE | 2017-10-11 10:42 | Progress Note ---
- Date 10/11/17 Subjective: Jayro was in her chair. She denied pain and was in no acute distress. She was confused -- she told me that she broke her hip a long time ago but she's actually in the hospital now for her granddaughter, who was just in the bed but stepped out. She denied any shortness of breath or chest pain. No abdominal pain or nausea but she reported that her stomach has been "gurgling". She can't recall if she ate breakfast or not. Nurses report that yesterday she saw a rat in her room and was screaming. Objective Vital signs: Temperature 97.1 F 10/11/17 07:37 Pulse Rate 99 10/11/17 07:44 Respiratory Rate 18 10/11/17 07:37 Blood Pressure 123/59 10/11/17 07:37 Pulse Oximetry 95 10/11/17 07:37 Rhythm: Normal Sinus Rhythm, Premature Atrial Contractions Height/Weight/BMI: Height 1.65 m Weight 65 kg Body Mass Index 23.5 - Constitutional Present: no acute distress, well nourished, well developed, thin - Routine HEENT Exam Head: Present: normocephalic Eye: Present: PERRL (pupils are pinpoint). Absent: conjunctival icterus, scleral injection ENT: Present: mucous membranes moist - Routine Respiratory Exam Present: CTA bilaterally - Routine Cardiovascular Exam Present: RRR, S1, S2, irregular rhythm - Routine Abdominal Exam Present: soft, normoactive bowel sounds, non distended, non tender - Routine Exam Comments: Joaquin to DD; urine clear yellow in bag - Routine Extremities Exam Present: no edema - Routine Skin Exam Present: dry, warm - Routine Neurological Exam Present: alert, normal speech. Absent: oriented X3 - Routine Psychiatric Exam Present: cooperative. Absent: normal thought process Results - Labs CBC & Chem 7: 10/11/17 04:16 10/11/17 04:16 Microbiology Results: Microbiology 10/08/17 04:47 Urine, Cath Joaquin Urine Culture - Final Escherichia coli Corynebacterium species Assessment and Plan (1) Fracture of femoral neck, left Current visit: Yes Status: Resolved Assessment and Plan: Impression Fall with left femoral neck fracture-status post left hip hemiarthroplasty on . Hypotension postop after clonidine-resolved with IV fluid bolus Mild encephalopathy Acute kidney injury-resolved UTI-E. coli, present on admission, currently on Rocephin Hyperkalemia-resolved Thrombocytosis, present on admission Mild ABLA Dehydration Questionable nodule on chest j-llq-akrmez-up as outpatient Chronic kidney disease Dementia Hypertension-hold clonidine Plan POD #2 BP improving -- clonidine on hold. DC IVF. Keflex started for E. coli UTI, after 3 doses of Rocephin. DC Joaquin today. Tele reviewed - Mild sinus tach with occ. PACs Labs; mild ABLA with hgb of 10.2; platelets still elevated at 487 (on admission 554). Na 145 and renal function is stable with BUN of 29 and cr 1.2. Continue ASA x6 weeks Cont PT/OT - poss DC to [facility] soon. DVT Prophylaxis: SCD's Resuscitation Status: Do Not Resuscitate - Physician Narrative Physician: Dexter Sharif MD Narrative: Date: 10/11/17 Time: 1210 Have independently interviewed and examined pt. Chart reviewed. Case discussed with CM and my DAIRY CATTLE FARM MANAGER. Care plan developed with my supervision; agree with above. Sitting up in chair. Denies pain or discomfort. Breathing well. Appetite decreased, not feeling hungry. No ab pain or nausea. Lungs: clear bilaterally CV: irregularly irregular AB: soft nt/nd MSE: awake alert Plan: Medically improved. Will discharge to [facility] for continuation of care-care home. Start Calcium with Vit D BID. ASA for DVT prevention. Encourage therapy and pulmonary toilet. F/U with E[facility] in 1 week. See orders for details. Hospital Course Summary Disclaimer: The visit summary below is not to be considered part of the above Progress Note. Hospital Course: 10/08 Recheck potassium Change IV fluids to normal saline Joaquin catheter was placed Rocephin for UTI Okay to proceed with surgery if recheck potassium is okay. Discussed with Mj Larios orthopedic PA Recheck CBC and basic metabolic profile in the morning Because of frequent falls, the patient is likely a poor candidate for anticoagulation post hip fracture repair. Fortunately, she does have an IVC filter in place. Discussed with family, they are wary to place on anticoagulation because of her history of intracranial hemorrhage, subdural hematoma and known history of GI bleed. Consider follow-up chest x-ray as outpatient 10/09: OP day Continue cautious IV fluids Continue Rocephin for UTI 10/10 IV fluids decreased to 80 ml/hr. Monitor for fluid overload Continue Rocephin for UTI- sensitive Encouraged nursing to treat pain as this may cause tachycardia 6 weeks of ASA for post-op PPX PT/OT to encourage post-op strengthening 10/11 POD #2 BP improving -- clonidine on hold. DC IVF. Keflex started for E. coli UTI, after 3 doses of Rocephin. DC Joaquin today. Tele reviewed - Mild sinus tach with occ. PACs Labs; mild ABLA with hgb of 10.2; platelets still elevated at 487 (on admission 554). Na 145 and renal function is stable with BUN of 29 and cr 1.2. Continue ASA x6 weeks Cont PT/OT - poss DC to [facility] soon.
--- NOTE | 2017-10-11 11:15 | Orthopedic Progress Note ---
Date: Date: 10/11/17 Time: 1112 Subjective/Severity of Illness: Candido had a left hip mona arthroplasty on 10/09/[address] Morgan. She is doing okay this AM. She is up to a chair. She is confused. She states she is here for her daughter. I did remind her that she broke her hip and she had surgery. She has no new complaints. Orthopedic Objective PO Vital signs: Temperature 97.1 F 10/11/17 07:37 Pulse Rate 99 10/11/17 07:44 Respiratory Rate 18 10/11/17 07:37 Blood Pressure 123/59 10/11/17 07:37 Pulse Oximetry 95 10/11/17 07:37 Height and Weight: Height 5 ft 5 in Weight 143 lb 4.807 oz Body Mass Index 23.5 - Constitutional General Appearance: Present: alert, no acute distress - Respiratory Exam Present: non-labored - Cardiovascular Exam Present: pedal pulses intact - Abdominal Exam Absent: tenderness - Extremities Exam Extremities: Present: pulses intact. Absent: calf tenderness - Hip Exam Hip Exam: Present: decreased ROM (felxion), decreased ROM (rotation). Absent: abnormal rotation - Surgical Site Incision: Mepilex dressing intact, no drainage - Integumentary Exam Present: pink, warm, dry - Lymphatic Lymphatic: Absent: adenopathy - Neurological Exam Present: no deficits - Psychiatric Exam Present: alert - Labs Result Diagrams: 10/11/17 04:16 10/11/17 04:16 Abnormal lab results 10/11/17 10/11/17 Range/Units 04:16 04:16 RBC 3.70 L (4.00-5.20) M/MM3 Hgb 10.2 L (12-16) GM/DL Hct 34.0 L (36-46) % MCHC 30.0 L (31-37) GM/DL RDW Std Deviation 55.8 H (36.9-50.2) FL Plt Count 487 H (130-400) T/MM3 Neutrophils % (Manual) 78.0 H (33-66) % Lymphocytes % (Manual) 6.0 L (23-45) % Monocytes % (Manual) 12.0 H (0-9.0) % Neutrophils # (Manual) 8.5 H (1.8-7.7) T/MM3 Lymphocytes # (Manual) 0.7 L (1-4.8) T/MM3 Monocytes # (Manual) 1.3 H (0-0.8) T/MM3 Sodium 145 H (134-144) MEQ/L Chloride 111 H (98-107) MEQ/L BUN 29.0 H (7-17) MG/DL Calculated Osmolality 286 H (261-280) MOSM/KG Calcium 8.3 L (8.4-10.2) MG/DL H & H 10/09/17 10/10/17 10/11/17 Range/Units 04:22 04:12 04:16 Hgb 15.3 D 11.3 L D 10.2 L (12-16) GM/DL Hct 47.8 H 37.2 D 34.0 L (36-46) % Coagulation 10/08/17 Range/Units 06:11 INR 1.17 (0.99-1.21) Orthopedic Assessment and Plan (1) Fracture of femoral neck, left Status: Acute Qualifiers: Encounter type: initial encounter Fracture type: closed Qualified Code(s) : S72.002A - Fracture of unspecified part of neck of left femur, initial encounter for closed fracture Assessment and Plan: Aspirin protocol for VTE prophylaxis x 6 weeks. SCD's and early mobilization for added DVT coverage. PT/OT services to improve independent function. WBAT. Will need f/u with ortho 3weeks post op. Discharge Planning per Case Management. Hospital Course Summary Disclaimer: The visit summary below is not to be considered part of the above Progress Note. Hospital Course: 10/08 Recheck potassium Change IV fluids to normal saline Joaquin catheter was placed Rocephin for UTI Okay to proceed with surgery if recheck potassium is okay. Discussed with Mj Larios, orthopedic PA Recheck CBC and basic metabolic profile in the morning Because of frequent falls, the patient is likely a poor candidate for anticoagulation post hip fracture repair. Fortunately, she does have an IVC filter in place. Discussed with family, they are wary to place on anticoagulation because of her history of intracranial hemorrhage, subdural hematoma and known history of GI bleed. Consider follow-up chest x-ray as outpatient 10/09: OP day Continue cautious IV fluids Continue Rocephin for UTI 10/10 IV fluids decreased to 80 ml/hr. Monitor for fluid overload Continue Rocephin for UTI- sensitive Encouraged nursing to treat pain as this may cause tachycardia 6 weeks of ASA for post-op PPX PT/OT to encourage post-op strengthening 10/11 POD #2 BP improving -- clonidine on hold. DC IVF. Keflex started for E. coli UTI, after 3 doses of Rocephin. DC Joaquin today. Tele reviewed - Mild sinus tach with occ. PACs Labs; mild ABLA with hgb of 10.2; platelets still elevated at 487 (on admission 554). Na 145 and renal function is stable with BUN of 29 and cr 1.2. Continue ASA x6 weeks Cont PT/OT - poss DC to [facility] soon.
[2017-10-11] MEDS: 1/2 NS 1,000 ML IV SCH (11:38)
--- NOTE | 2017-10-11 12:09 | Discharge Summary ---
Discharge Information Date of admission: 10/08/17 01:21 Anticipated date of discharge: 10/11/17 Attending Physician: Dexter Sharif MD Primary care physician: Jovana Ramirez MD Consults: Consulting Provider: Aneudy Morgan Consulting Provider: Jagdish Norton - Discharge Diagnosis (1) Fracture of femoral neck, left Status: Resolved Fall with left femoral neck fracture-status post left hip hemiarthroplasty on Hypotension postop after clonidine-resolved with IV fluid bolus Mild encephalopathy Acute kidney injury-resolved UTI-E. coli, present on admission, currently on Rocephin Hyperkalemia-resolved Thrombocytosis, present on admission Mild ABLA Dehydration Questionable nodule on chest p-fce-qkrjmb-up as outpatient Chronic kidney disease stage III Dementia Hypertension-hold clonidine - Procedures Procedures: 10/09/2017 Left hip hemiarthroplasty. SURGEON: Dr. Morgan - Laboratory Labs: 10/11/17 04:16 10/11/17 04:16 - Microbiology Microbiology 10/08/17 04:47 Urine, Cath Flores Urine Culture - Final Escherichia coli Corynebacterium species - Radiology Radiology: CXR 10/08/17 IMPRESSION: Chronic senescent interstitial changes. Density in the left perihilar region may reflect summation of ribs and bronchovascular hilar structures versus a benign calcified nodule. B/L HIP XRAYS 10/08/17 Impression: 1. Acute slightly impacted left femoral neck fracture deformity. 2. 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 3. Generalized osteopenia suggested. POSTOP PELVIS/HIP X-RAY 10/09/17 Impression: New left femoral head prosthesis without evidence of immediate complication. History of Present Illness HPI: patient seen via telemedicine with nursing assistance Ms. Lemos is an 82yo woman with h/o dementia, 05/2017 ICH with skilled placement since. No recent medication changes and daughter assists with history. Fall 4 hours ago with pain and inability to ambulate with L fem neck fx by Xray. No pain recognized by the patient who is a very poor historian. Last UTI 3 months ago and gets aggressive when present. DNR. Objective Vital signs: Temperature 97.1 F 10/11/17 07:37 Pulse Rate 99 10/11/17 07:44 Respiratory Rate 18 10/11/17 07:37 Blood Pressure 123/59 10/11/17 07:37 Pulse Oximetry 95 10/11/17 07:37 Rhythm: Normal Sinus Rhythm, Premature Atrial Contractions Height/Weight/BMI: Height 1.65 m Weight 65 kg Body Mass Index 23.5 Hospital Course This is a general summary of the patient's hospital course. For more details refer to the complete medical record. Hospital course: Patient was admitted for left hip fracture on 10/08/[address] Morgan was consulted. Potassium was initially elevated up to 5.5, but after IVF this improved and she was cleared for surgery. Initial CXR showed left hilar abnormality - discussed with family, and they were not aware of this but are unlikely to pursue definitive diagnosis. Hgb on admission was 13.7, and platelets were elevated at 554. She underwent a left hip hemiarthroplasty on . Since she has an IVC filter and history of ICH and GI bleed, ortho team recommended ASA 81 mg BID x6 weeks for prophylaxis. She had a UTI on admission, and received 3 doses of Rocephin before sensitivities returned -- E. coli was diagnosed, and abx were changed to Keflex on 10/11/17. A flores catheter was inserted on admission, but this was discontinued prior to discharge. BP decreased postop 80s/50s, and antiHTN were held. BP improved to 130/66 on day of discharge. She worked with PT/OT, though ability to follow commands was limited d/t dementia. She also had hallucinations on 10/10/17 -- daughter believes these were secondary to narcotics, which she doesn't tolerate well. She was medically stable for discharge back to [facility] on 10/11/17. Labs on day of discharge included: Hgb 10.2, platelets 487, Na 145, K 4.1, BUN 29, creatinine 1.2, Ca 8.3. Discussed discharge plans with family; would recommend a bed alarm at [facility] d/t hx of frequent falls. Will continue to hold antiHTN including clonidine, Lisinopril, and Lasix d/t recent hypotension and decreased oral intake. Remeron was discontinued per family request. Hopefully these medications can be restarted soon, per Dr. Ramirez. Rx [place], Calcium + Vit. D, ASA x6 weeks, and Keflex x 4 days to complete 7-day course for E. coli UTI. F/U with Dr. oMrgan in [address] Ramirez in 1 week. F/U CXR per family discretion. Repeat CBC and BMP on 10/15/17. In summary, active problems that require follow up include: recent hypotension, E. coli UTI, recent hyperkalemia and JOAQUINA, thrombocytosis, abnormal CXR. Time spent with patient: discharge greater than 30 minutes Resuscitation Status: Do Not Resuscitate Discharge Plan - Discharge Disposition Discharge Date: 10/11/17 Disposition: 03 To SNU Not [facility] [place] [place] (SNF) *Condition: Improved Reason For Visit (Visit label in EMR): L femoral neck fracture - Discharge Medications *Discharge Medications: New Aspirin Chewable [ASA] 81 mg PO BID #80 tab.chew CephALEXin [Keflex 500 mg] 500 mg PO Q12HR #8 cap Calcium Carbonate/Vitamin D3 [Calcium 600 + Vit D Tablet] 1 each PO BID #30 tab Hydrocodone/APAP 5/325 [[place] 5/325] 0.5 - 1 tab PO Q6H PRN #15 tab PRN Reason: Pain Continue Donepezil HCl [Aricept] 10 mg PO HS Tamsulosin [Flomax] 0.4 mg PO HS cap Guaifenesin/Dextromethorphan [Guaifenesin Dm Syrup] 5 ml PO Q4-6HPRN Docusate Sodium [Colace] 100 mg PO BID PRN PRN Reason: Constipation Acetaminophen [Pain Relief] 500 mg PO Q4HPRN Divalproex [Depakote] 250 mg PO BID Melatonin 6 mg PO HS Sertraline [Zoloft] 50 mg PO DAILY Cholecalciferol [Vit. D-3] 1,000 unit PO DAILY Memantine HCl 10 mg PO BID Acetaminophen [Tylenol] 650 mg PO TID PEG 3350 17gm PACKET [Miralax] 17 gm PO DAILY packet Levothyroxine Tab [Synthroid] 25 mcg PO ACB Tensoshapes 2 applicatio TOP BID Levetiracetam [Keppra] 250 mg PO HS LORazepam [Ativan] 0.5 mg PO Q8H PRN #20 tab PRN Reason: Anxiety Discontinued CloNIDine [Catapres] 0.1 mg PO BID tab Furosemide [Lasix] 20 mg PO BID Lisinopril [Prinivil] 10 mg PO DAILY Mirtazapine [Remeron] 15 mg PO HS - Discharge Packet/Instructions *Diet: Regular diet, Pureed. *Activity: PT/OT *Wound Care: Leave dressing intact, change when necessary. Monitor for redness, swelling, drainage, warmth. Additional Instructions: Please use bed alarm and monitor hygeine practices after using the bathroom. Monitor for urinary retention (she had a Flores during her hospitalization, which was discontinued on 10/11/17). *Expected Signs/Symptoms: Hip pain, gait instability, confusion. *Notify Physician if: Fever, signs of wound infection, difficulty breathing, chest pain, stroke-like symptoms or new neurologic symptoms, dehydration, altered mental status, syncope, or any new concerns. *During Business Hours Contact: Dr. Ramirez's office for general medical concerns, Dr. Morgan's office for hip-related concerns. *After Business Hours Contact: The on-call provider for Dr. Ramirez and/or Dr. Morgan. *Pending Lab/Results: No Pending Lab Outpatient Orders: BMP - Basic Metabolic - [facility] Time Frame: 4 Days, Location: None Selected CBC w Auto Diff-[facility] Time Frame: 4 Days, Location: None Selected - Referrals/Follow Up *Referrals/Follow Up: Mj Larios PA [Physician Entry Level Manufacturing Engineer] - 10/29/17 10:30 am Jovana Ramirez MD [Family Provider] - 1 Week (please f/u on hypotension, anemia, hyperkalemia, UTI.) Aneudy Morgan MD [Physician] - 3 Weeks - Patient Handouts Patient Handouts: [facility] Postop Instructions - Dismissal Complete Discharge Instructions are:: Complete Physician Narrative - Narrative Attestation Narrative: Date: 10/11/17 Time: 1644 I have independently interviewed and examined patient prior to discharge. See my progress note from today for details. Medically stable for discharge to [facility].
[2017-10-11 12:17] VITALS: BP 130/66; RESP 16; TEMP 97.5; O2SAT 98
--- NOTE | 2017-10-11 13:23 | Extended Care Facility Orders ---
Admission Orders Admit to:: Jail Allergies/Adverse Reactions: Allergies No Known Allergies Allergy (Verified 09/11/17 19:27) Admitting Diagnosis: L femoral neck fracture Admitting Physician: Dexter Sharif MD Attending Physician: Dexter Sharif MD Code Status: Do Not Resuscitate Anticiapted Length of Stay: 30 days or less Rehab Potential: fair Rehab Prognosis: fair Diet: Regular Diet [DIET] Diet Modifications: Food Consistency: PUREED Wound/Incision Care: leave dressing intact, change as necessary. Monitor for signs of infection: redness, swelling, drainage, warmth, fever. May use Facility Protocol or Standing Orders: Yes May have flu vaccine: Yes Evaluations/Treatment: PT, OT, as needed Jail Certification: I certify that SNF services are required to be given on an Inpatient basis because of the patient's need for prison care on a continuing basis for the condition(s) for which she received inpatient hospital services prior to her transfer to the SNF. SNF inpatient care is necessary for the following reasons Indication for Jail: Other (Orthostasis, urinary retention, gait instability) - Additional Information In Event of Arrest: Do Not Start CPR Resident is Aware of Diagnosis: No (history of dementia; family aware of diagnosis) Laboratory/Radiology: BMP and CBC on 10/15/17. Fax results to Dr. Ramirez. Referrals: Jovana Ramirez MD [Family Provider] - 1 Week (please f/u on hypotension, anemia, hyperkalemia, UTI.) Aneudy Morgan MD [Physician] - 3 Weeks Mj Larios PA [Physician Luggage Repairer] - 10/29/17 10:30 am Additional Orders: Please use a bed alarm.
== END 2017-10-11 14:45 | DRG 469 ==
LOC: ED 00:10 → SRG 01:21 → SUATTDRO 01:21 → SRG 02:15
PROVIDERS: ADMIT Hospitalist; ATTEND Hospitalist

== ENCOUNTER 2018-02-05 21:34 | Observation (INO) ==
--- NOTE | 2018-02-05 21:54 | Emergency Department Report ---
Neuro HPI - General Stated Complaint: stroke Time Seen by Provider: 02/05/18 21:41 Source: patient Mode of arrival: ambulatory Limitations: no limitations - History of Present Illness HPI Narrative: Patient lives at [facility], and has significant chronic medical problems. Apparently tonight the patient had an episode of aspiration with collapse, and became completely unresponsive. The patient's mouth was cleared immediately, she was placed in recovery position, and EMS was notified. On arrival EMS was able to suction out some more particulate emesis from her mouth , but patient continued to be completely unresponsive with unequal pupils. Patient does have a history of significant and multiple strokes in the past as well as falls, but no recent falls or trauma. Patient has an active DO NOT RESUSCITATE, and her DPOA/daughter is in attendance with the patient, and she verifies her DO NOT RESUSCITATE order as well as wishing for comfort care only if the patient has had another large stroke. - Related Data Home Medications: Home Medications Medication Instructions Recorded Confirmed Acetaminophen [Tylenol] 650 mg PO TID 06/12/17 02/05/18 Donepezil HCl [Aricept] 10 mg PO HS 06/12/17 02/05/18 Memantine HCl 10 mg PO BID 06/12/17 02/05/18 Acetaminophen [Pain Relief] 500 mg PO Q4HPRN 09/11/17 02/05/18 Cholecalciferol [Vit. D-3] 1,000 unit PO DAILY 09/11/17 02/05/18 Divalproex [Depakote] 125 mg PO DAILY 09/11/17 02/05/18 Docusate Sodium [Colace] 100 mg PO BID PRN 09/11/17 02/05/18 Guaifenesin/Dextromethorphan 5 ml PO Q4-6HPRN 09/11/17 02/05/18 [Guaifenesin Dm Syrup] Levothyroxine Tab [Synthroid] 25 mcg PO ACB 09/11/17 02/05/18 Melatonin 6 mg PO HS 09/11/17 02/05/18 Sertraline [Zoloft] 50 mg PO DAILY 09/11/17 02/05/18 Levetiracetam [Keppra] 250 mg PO HS 10/08/17 02/05/18 Divalproex [Depakote] 1 tab PO HS 02/05/18 02/05/18 Mirtazapine [Remeron] 7.5 mg PO HS 02/05/18 02/05/18 Previous Rx's Medication Instructions Recorded PEG 3350 17gm PACKET [Miralax] 17 gm PO DAILY packet 06/21/17 Tamsulosin [Flomax] 0.4 mg PO HS cap 06/21/17 Aspirin Chewable [ASA] 81 mg PO BID #80 tab.chew 10/11/17 Calcium Carbonate/Vitamin D3 1 each PO BID #30 tab 10/11/17 [Calcium 600 + Vit D Tablet] Hydrocodone/APAP 5/325 [[place] 0.5 - 1 tab PO Q6H PRN #15 tab 10/11/17 5/325] LORazepam [Ativan] 0.5 mg PO Q8H PRN #20 tab 10/11/17 Allergies/Adverse Reactions: Allergies Allergy/AdvReac Type Severity Reaction Status Date / Time No Known Allergies Allergy Verified 02/05/18 21:50 Review of Systems All systems: reviewed and negative except as stated PFSH Patient Stated Medical History Cerebrovascular Accident Yes: 05/2017, brain bleed Dementia Yes Paralysis No Seizures No Syncope No Transient Ischemic Attacks ( Yes TIA) Dental Problems Yes: dentures, partial Dysphagia Yes Angina No Cardiac Arrhythmia Yes: irregular at times Congestive Heart Failure No Coronary Artery Disease No Heart Murmur No Hypertension Yes Hypotension No Myocardial Infarction No Rheumatic Fever No Valvular Heart Disease No Other Cardiology No Asthma No Bronchitis No Chronic Obstructive Pulmonary No Disease (COPD) Pneumonia No Pulmonary Edema No Pulmonary Embolism Yes: 05/2017, has [place] filter Sleep Apnea No Tuberculosis No Other Respiratory No Diabetes Mellitus Type 1 No Diabetes Mellitus Type 2 No Cirrhosis No Gastroesophageal Reflux No Disease Gastrointestinal Bleeding Yes Hepatitis No Hiatal Hernia No Obstructive Bowel No Ulcer Yes Other GI No Hx Incontinence Yes Hx Urinary Tract Infection Yes Osteoarthritis Yes Other Musculoskeletal No Shingles Yes Depression Yes Post Menopausal Yes Clinic Medical History (Last Reviewed 01/30/18 @ 13:25 by ARASELI Reina) Chronic kidney disease (Acute Medical) Closed left femoral fracture (Acute Medical) Dementia (Acute Medical) Hypertension (Acute Medical) Osteoarthritis (Acute Medical) TIA/CVA, intraparenchymal bleed Dysphagia Cardiac arrhythmia/atrial arrhythmia Pulmonary embolism/DVT's Shingles Depression Medical History Updates: Patient's home medications prior to [place] admission were: Donepezil 10 mg at at bedtime, sertraline 50 mg at at bedtime, amantadine 10 mg twice a day. New medications started during admission were: Clonidine 0.1 mg twice a day, amlodipine 10 mg daily, levetiracetam 5 mg twice a day, tamsulosin 0.4 mg daily, acetaminophen 500 mg every 6 hours when necessary, milk of mag when necessary, docusate 100 twice a day, and MiraLAX daily PRN. Surgical History: Cholecystectomy, appendectomy, bladder repair, Hemiarthroplasty, Lt Hip 10/09/17 Family History: Family History (Last Reviewed 01/30/18 @ 13:25 by ARASELI Reina) Unknown Unknown family medical history Family History Updates: sister cancer and pacemaker. no early CAD. - Social History Smoking status: Never smoker second hand exposure: No Substance use type: does not use Alcohol intake: never Alcohol intake frequency: does not drink Housing: house Household members: none Current occupational status: retired Does patient use chewing tobacco?: No Current residence: [place] Physical Exam - Limitations Limitations: no limitations - General General appearance: alert - Normal Exams: Head:: Normocephalic without trauma - Eye Eye exam: Present: other (pupils are nonreactive, right pinpoint left 5-6 mm.) - ENT ENT exam: Present: other (dry mouth, otherwise normal.) - Neck Neck exam: Present: normal inspection, trachea midline. Absent: tenderness - Chest Chest inspection: Present: normal inspection, symmetric chest wall rise. Absent : tenderness - Respiratory Respiratory exam: Present: respiratory distress (patient has agonal respirations with guppy breathing), accessory muscle use. Absent: normal lung sounds bilaterally (course rhonchi bilaterally), wheezes, stridor, prolonged expiratory phase - Cardiovascular Cardiovascular exam: Present: regular rate, normal rhythm, normal heart sounds - Abdominal Exam Abdominal exam: Present: soft, normal bowel sounds. Absent: distention, tenderness, guarding - Extremities Exam Extremities exam: Present: normal inspection, full ROM. Absent: tenderness, normal capillary refill, pedal edema, calf tenderness - Skin Skin exam: Present: other (multiple areas of ecchymosis of varying age over the course of the extremities) - Neurological Exam Neurological exam: Present: other (patient is unresponsive, agonal breathing, no response to painful stimuli, with fixed pupils) Neuro Symptoms/Deficit - [facility] Narrative Medical decision making narrative: CT scan shows a large left parenchymal hemorrhage with significant mass effect and concern for imminent uncal herniation. Extra axial hemorrhage/subdural seen in the left frontal region as well. I discussed at length CT scan findings and plan for care with the patient's family. At this time they would like to have comfort care only. As the patient has impending uncal herniation and is rapidly declining, we will keep the patient in the ER, using morphine for comfort care, and continue with no further interventions other than basic lab Patient does have significant hypertension that appears to be a secondary result of the patient's brain swelling, and after discussion with the patient's family we are electing not to treat as this will have little if any effect on the patient's outcome or duration of her course. 2230 - After approximately one hour, patient continues to be hypertensive and tachycardic fluctuating in and out of atrial fibrillation. Heart rates range from 93-120. 0000 - patient appears to have stabilized, after total of 4 mg morphine for pain and air hunger, patient is on 10 L by mask, oxygenating 90-95%. At this point the patient's demise does not appear immediate, therefore patient is being admitted for comfort care only, so the family may have a more comfortable and opportune environment for the passing of their loved one. Case is discussed with Dr. Davalos, who is accepting the patient for medical unit observation - Lab Data Result diagrams: 02/05/18 21:46 02/05/18 21:46 Critical Care Time Critical Care Time: Yes Total Critical Care Time: 40 Attestation: Patient required immediate and aggressive intervention and diagnostics, for severe interparenchymal brain hemorrhage Disposition Clinical Impression: Intraparenchymal hemorrhage of brain Disposition: To [facility] [place] Condition: Stable Prescriptions: No Action Donepezil HCl [Aricept] 10 mg PO HS Tamsulosin [Flomax] 0.4 mg PO HS cap Guaifenesin/Dextromethorphan [Guaifenesin Dm Syrup] 5 ml PO Q4-6HPRN Docusate Sodium [Colace] 100 mg PO BID PRN PRN Reason: Constipation Acetaminophen [Pain Relief] 500 mg PO Q4HPRN Divalproex [Depakote] 125 mg PO DAILY Melatonin 6 mg PO HS Sertraline [Zoloft] 50 mg PO DAILY Cholecalciferol [Vit. D-3] 1,000 unit PO DAILY Aspirin Chewable [ASA] 81 mg PO BID #80 tab.chew Calcium Carbonate/Vitamin D3 [Calcium 600 + Vit D Tablet] 1 each PO BID #30 tab Mirtazapine [Remeron] 7.5 mg PO HS Memantine HCl 10 mg PO BID Acetaminophen [Tylenol] 650 mg PO TID PEG 3350 17gm PACKET [Miralax] 17 gm PO DAILY packet Levothyroxine Tab [Synthroid] 25 mcg PO ACB Levetiracetam [Keppra] 250 mg PO HS LORazepam [Ativan] 0.5 mg PO Q8H PRN #20 tab PRN Reason: Anxiety Hydrocodone/APAP 5/325 [[place] 5/325] 0.5 - 1 tab PO Q6H PRN #15 tab PRN Reason: Pain Divalproex [Depakote] 1 tab PO HS Referrals: Jovana Ramirez MD [Primary Care Provider] - - Seen By: physician
[2018-02-05] MEDS ORDERED: MORPHINE SULFATE 4mg INJECTION IVP PRN (22:05)
[2018-02-05] MEDS ORDERED: MORPHINE SULFATE 4mg INJECTION IVP ONE (23:30)
[2018-02-06] MEDS ORDERED: ONDANSETRON 4 MG/2 ML INJECTION IVP PRN (00:21)
[2018-02-06] MEDS ORDERED: MORPHINE SULFATE 4mg INJECTION IVP PRN (00:21)
--- NOTE | 2018-02-06 01:26 | History & Physical Report ---
History of Present Illness Date: 02/06/18 Chief complaint: sudden weakness HPI: This is a 82 y/o female who resides at a local nursing care facility. The patient apparently stood up and had a sudden loss of awareness. EMS transported to the ED where a CT demonstrated a large intraparenchymal bleed on the left with an associated small subdural hematoma left frontal. The patient has a history of a previous intraparenchymal bleed. She apparently has thrombocytosis and previous DVT, PE and also bleed. The family (multiple members) were present in the ED. They requested conservative measures and comfort care approach. The patient is a DNR. The ED anticipated that she would in the ED and watched her for 2 hours. As she was not worsening rapidly she will be admitted for comfort care measures only. Review of Systems Review of systems: unable to obtain due to severe clinical condition Past Medical History Medical History: Medical History (Last Reviewed 01/30/18 @ 13:25 by ARASELI Reina) Chronic kidney disease Closed left femoral fracture Dementia Hypertension Osteoarthritis Medical History Updates: Patient's home medications prior to [place] admission were: Donepezil 10 mg at at bedtime, sertraline 50 mg at at bedtime, amantadine 10 mg twice a day. New medications started during admission were: Clonidine 0.1 mg twice a day, amlodipine 10 mg daily, levetiracetam 5 mg twice a day, tamsulosin 0.4 mg daily, acetaminophen 500 mg every 6 hours when necessary, milk of mag when necessary, docusate 100 twice a day, and MiraLAX daily PRN. Surgical History: Cholecystectomy, appendectomy, bladder repair, Hemiarthroplasty, Lt Hip 10/09/17 Family History: Family History (Last Reviewed 01/30/18 @ 13:25 by ARASELI Reina) Unknown Unknown family medical history Family History: As Above - Social History Smoking status: Never smoker Does patient use chewing tobacco?: No Current residence: [place] Medications Home Medications Medication Instructions Recorded Confirmed Type Acetaminophen [Tylenol] 650 mg PO TID 06/12/17 02/05/18 History Donepezil HCl [Aricept] 10 mg PO HS 06/12/17 02/05/18 History Memantine HCl 10 mg PO BID 06/12/17 02/05/18 History PEG 3350 17gm PACKET [Miralax] 17 gm PO DAILY packet 06/21/17 02/05/18 Rx Tamsulosin [Flomax] 0.4 mg PO HS cap 06/21/17 02/05/18 Rx Acetaminophen [Pain Relief] 500 mg PO Q4HPRN 09/11/17 02/05/18 History Cholecalciferol [Vit. D-3] 1,000 unit PO DAILY 09/11/17 02/05/18 History Divalproex [Depakote] 125 mg PO DAILY 09/11/17 02/05/18 History Docusate Sodium [Colace] 100 mg PO BID PRN 09/11/17 02/05/18 History Guaifenesin/Dextromethorphan 5 ml PO Q4-6HPRN 09/11/17 02/05/18 History [Guaifenesin Dm Syrup] Levothyroxine Tab [Synthroid] 25 mcg PO ACB 09/11/17 02/05/18 History Melatonin 6 mg PO HS 09/11/17 02/05/18 History Sertraline [Zoloft] 50 mg PO DAILY 09/11/17 02/05/18 History Levetiracetam [Keppra] 250 mg PO HS 10/08/17 02/05/18 History Aspirin Chewable [ASA] 81 mg PO BID #80 tab.chew 10/11/17 02/05/18 Rx Calcium Carbonate/Vitamin D3 1 each PO BID #30 tab 10/11/17 02/05/18 Rx [Calcium 600 + Vit D Tablet] Hydrocodone/APAP 5/325 [[place] 0.5 - 1 tab PO Q6H PRN #15 tab 10/11/17 02/05/18 Rx 5/325] LORazepam [Ativan] 0.5 mg PO Q8H PRN #20 tab 10/11/17 02/05/18 Rx Divalproex [Depakote] 1 tab PO HS 02/05/18 02/05/18 History Mirtazapine [Remeron] 7.5 mg PO HS 02/05/18 02/05/18 History Allergies Allergy/AdvReac Type Severity Reaction Status Date / Time No Known Allergies Allergy Verified 02/05/18 21:50 Exam Vital Signs: Temperature 97.8 F 02/05/18 21:37 Pulse Rate 121 H 02/06/18 00:29 Respiratory Rate 11 02/06/18 00:29 Blood Pressure 188/90 H 02/06/18 00:29 Pulse Oximetry 97 02/06/18 00:29 Telemetry Rhythm: Sinus Rhythm - Constitutional Present: moderate distress, thin, somnolent, obtunded - Routine HEENT Exam Head: Present: normocephalic, atraumatic ENT: Present: mucous membranes moist - Routine Neck Exam Present: supple - Routine Respiratory Exam Comments: coarse rhonchi heard easily. not mostly upper airway noise - Routine Cardiovascular Exam Present: RRR - Routine Abdominal Exam Present: soft, normoactive bowel sounds, non distended - Routine Extremities Exam Present: edema - Routine Skin Exam Present: intact - Routine Neurological Exam Present: motor deficit, altered mental status. Absent: alert, oriented X3, moving all extremities - Routine Psychiatric Exam Absent: normal affect, normal thought process Results - Labs CBC & Chem 7: 02/05/18 21:46 02/05/18 21:46 Labs: labs reviewed and will be discussed below CT head with a dramatic intraparenchymal bleed and left frontal subdural hematoma. note there is significant mid line shift. Assessment and Plan (1) Dementia Current visit: No Status: Chronic (2) Subdural hematoma Current visit: No Status: Acute (3) Intraparenchymal hemorrhage of brain Current visit: Yes Status: Acute (4) Osteoarthritis of right hip Current visit: No Status: Acute (5) CKD (chronic kidney disease) stage 3, GFR 30-59 ml/min Current visit: No Status: Acute (6) HTN (hypertension) Current visit: No Status: Acute Assessment and Plan: 1. left sided intraparenchymal bleed with associated left subdural hematoma acute POA: comfort care. will not check vitals. will not check labs. Family is completly supportive of comfort care meds only. social work cx for pallative care. morphine, ativan, zofran, transderm scopolomine patch. r/c 2l oxygen only. Family wants continue high flow oxygen and wants monitor for now. Will work with family more to understand comfort care approach. Very nice. met with everyone and made myself available to answer any and all questions. 2. thrombocytosis acute POA: hx of in the past. patient with previous bleed. One would surmise that platletts are not functioning. to be aware of. comfort care only 3. dementia chronic POA: type unspecified. prn meds for comfort only DVT ppx; not indicated gastric ppx: not indicated Resuscitation Status: Do Not Resuscitate - Time spent with patient Time with patient PN: 35 minutes - Physician Narrative Physician: other (Tamara MARTINEZ) Narrative: Date: 02/06/18 Time: 122 CC: AMS HPI: Pt is an 82yo female presenting with altered mental status which began after standing up, while at the nursing care facility where she had been residing. No trauma. She became unresponsive. She was brought to the ER, where a CT head demonstrated a large intraperenchymal bleed on the left with an assoicated small subfural hematoma in the left frontal region. She is a DNR, and was admitted to the hospital for comfort measures and hospice evaluation. Pt is unresponsive to me, and unable to answer any questions. PMH: CKD Hx closed left femoral fxr. Dementia HTN OA Hx clots, for which she had an IVC filter placed. Surgical hx: IVC filter placement. Social hx No hx ot tobacco, EtOH, IDU. Lived in nursing care facility. Meds: See OCT. ROS: Unable to obtain, as pt unresponsive. Exam: Vital Signs Temperature 97.8 F 02/05/18 21:37 Pulse Rate 109 H 02/05/18 21:37 Respiratory Rate 28 H 02/05/18 21:37 Blood Pressure 202/100 H 02/05/18 21:37 Pulse Oximetry 92 02/05/18 21:37 Temperature 98.8 F 02/06/18 07:32 Pulse Rate 108 H 02/06/18 07:32 Respiratory Rate 12 02/06/18 07:32 Blood Pressure 124/53 02/06/18 07:32 Pulse Oximetry 85 L 02/06/18 07:32 Gen: Unresponsive. NAD. HEENT: Pupils not reactive. Left pupil dilated more than right. Unable to follow commands. CV: RRR without m/g/r. Pulm: Coarse upper airway sounds bilateral. No wheezing. Abd: Soft, ND. No organomegaly noted. Ext: No C/C/E. Neuro: Unable to follow any commands to assess. Skin: No rashes noted. Psych: Unable to assess given mental status. Labs: As above. A/P: Acute subdural hematoma and intraparenchymal hemorrhage of brain: Pt now unresponsive. DNR status. Family has opted for comfort care. Cont morphine, ativan, zofran, scopolamine patch, O2 for comfort. Dementia/HTN/CKD/thrombocytosis: Chronic conditions, no need to address further as pt comfort care. HyperK: No need to further workup and treat and pt comfort care. Proph: None indicated. Dispo: Hospice has been consulted. Await eval. Pedro Mcdonald MD. Hospital Course Summary Disclaimer: The visit summary below is not to be considered part of the above Progress Note.
[2018-02-06] MEDS ORDERED: SCOPOLAMINE 1mg/3 days PATCH (Eq. 1.5 Patch) TD SCH (01:30)
[2018-02-06] MEDS ORDERED: FALL RISK - PHARMACY CONSULT MC ONE (02:00)
[2018-02-06 07:36] VITALS: BP 124/53; PULSE 108; TEMP 98.8; O2SAT 85
--- NOTE | 2018-02-06 07:57 | CT Scan Report ---
Indication: acute unresponsiveness PROCEDURE: CT head/brain wo con: Encounter: Initial Comparison: September 11, 2017 Technique: Axial CT images through the head were performed without contrast. Iterative Reconstruction dose reducing technique was utilized. FINDINGS: There is a large intraparenchymal hemorrhage in the left parietal lobe extending into the left temporal lobe. Is measures up to 9.5 x 5.6 cm. This also extends into the left midbrain. There is also a small left frontoparietal subdural hematoma measuring up to 8 mm in thickness. There is significant surrounding vasogenic edema in the left hemisphere with rightward midline shift of 14 mm. There is severe effacement of the left lateral ventricle and evidence of developing transtentorial herniation with effacement of the quadrigeminal plate cistern and fourth ventricle. There is also effacement of the suprasellar cistern. No calvarial fracture. Mastoid air cells are clear. Impression: Very large left sided intraparenchymal hemorrhage with severe mass effect along with a small left subdural hematoma causing severe subfalcine and developing uncal and transtentorial herniation. Emergent neurosurgical consultation is recommended. There is a preliminary report by [facility]. .
[2018-02-06] MEDS ORDERED: ATROPINE 1% EYE DROPS PO/SL PRN (11:47)
[2018-02-06] MEDS ORDERED: LORazepam INTENSOL 1mg/0.5ml ORAL LIQUID PO PRN (11:47)
[2018-02-06] MEDS: MORPHINE SULFATE 10mg/0.5ml ORAL LIQ SL PRN ×2 (11:53→12:57)
[2018-02-06 12:57] VITALS: RESP 30
== END 2018-02-06 17:30 | disposition expired ==
LOC: ED 21:34 → EDHOLD 21:34 → MED 02-06 00:45
PROVIDERS: ADMIT Emergency Medicine; ATTEND Family Medicine